=== PATIENT | male | born 1945 | race Hispanic/Latino ===

== ENCOUNTER 2017-11-20 11:53 | Emergency (ER) | payer MEDICARE ==
[~2017-11-20] VITALS: Ht 172.7 cm; Wt 80.7 kg
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
[2017-11-20 15:21] VITALS: BP 164/92
== END 2017-11-20 15:21 | disposition home or self-care (01) ==
LOC: ER 11:53
DX: M54.2 Cervicalgia (principal); S16.1XXA Strain of muscle, fascia and tendon at neck level, initial encounter; V43.52XA Car driver injured in collision with other type car in traffic accident, initial encounter; Y92.488 Other paved roadways as the place of occurrence of the external cause; I10 Essential (primary) hypertension; E11.9 Type 2 diabetes mellitus without complications
CPT/HCPCS: 70450; 71046; 72125; 99283

== ENCOUNTER 2018-07-23 20:51 | Inpatient (IN) | payer MEDICARE ==
[~2018-07-23] VITALS: Ht 172.7 cm; Wt 82.1 kg
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
[2018-07-23 22:25] LABS: BILIRUBIN,URINE NEGATIVE (NEGATIVE); CLARITY,URINE CLEAR (CLEAR); COLOR,URINE YELLOW (YELLOW); KETONES,URINE NEGATIVE (NEGATIVE); LEUKOCYTE ESTERASE ,URINE NEGATIVE (NEGATIVE); NITRITE,URINE NEGATIVE (NEGATIVE); PROTEIN,URINE DIPSTICK 2+ (NEGATIVE); URINE UROBILINOGEN 0.2 mg/dL (0.2 - 1)
[2018-07-23 22:30] LABS: BACTERIA,URINE RARE /HPF; EPITHELIAL CELLS,URINE RARE /LPF; MUCUS,URINE MODERATE (RARE); RBC,URINE 0-5 /HPF (0-5); WBC,URINE (MAN) 0-5 /HPF (0-5)
[2018-07-23 22:48] LABS: BASOPHILS % 0.2 % (0.0-1.0); EOSINOPHILS # (AUTO) 0.2 (0.0-0.4); EOSINOPHILS % 1.4 % (0.0-6.0); LYMPHOCYTES # (AUTO) 2.1 (1.0-3.2); LYMPHOCYTES % 15.8 % (18.0-39.1); MEAN CORPUSCULAR HEMOGLOBIN 29.5 pg (28-32); MEAN CORPUSCULAR HGB CONC 34.1 g/dL (31-35); MEAN CORPUSCULAR VOLUME 86.6 fL (81-99); MONOCYTES # (AUTO) 0.6 (0.2-0.8); MONOCYTES % 4.6 % (4.4-11.3); NEUTROPHILS # (AUTO) 10.2 (2.1-6.9); NEUTROPHILS % 77.5 % (38.7-80.0); PLATELET COUNT 192 x10e3/uL (140-360); RED BLOOD COUNT 5.08 x10e6/uL (4.3-5.7); RED CELL DISTRIBUTION WIDTH 13.5 % (11.7-14.4)
[2018-07-23] MEDS ORDERED: SODIUM CHLORIDE 0.9% 50ML 50 ML ONE (22:48)
[2018-07-23] MEDS ORDERED: IOPAMIDOL 370 MG/ML 200 ML INFUS..BTL INJ ONE (22:48)
[2018-07-23 23:08] LABS: ALBUMIN 4.5 g/dL (3.5-5.0); ALBUMIN/GLOBULIN RATIO 1.3 (0.8-2.0); ANION GAP 15.9 mmol/L (8-16); CALCIUM 9.2 mg/dL (8.4-10.2); CREATININE, SERUM 1.28 mg/dL (0.72-1.25); POTASSIUM 3.9 mmol/L (3.5-5.1)
[2018-07-24] VITALS (7 sets, daily range): BP systolic 135–162; BP diastolic 76–85
--- NOTE | 2018-07-24 00:30 | Diagnostic Imaging Report ---
EXAM: CT ABDOMEN/PELVIS W DATE: 07/23/2018 9:48 PM INDICATION: Abdominal pain, history of prior umbilical surgery COMPARISON: None TECHNIQUE: The abdomen and pelvis were scanned using a multidetector helical scanner. Coronal and sagittal reformations were obtained. CT low dose techniques were utilized, as applicable. IV Contrast: 100 ml Isovue 300/370 FINDINGS: LOWER THORAX: No consolidations LIVER/BILIARY: Hepatic steatosis with multiple fluid attenuation hypodensities, likely benign/cysts. No ductal dilatation. GALLBLADDER: Unremarkable SPLEEN: Unremarkable PANCREAS: Unremarkable ADRENALS: No nodules KIDNEYS: Left kidney is absent. Incidental right renal cysts and too small to characterize hypodensities. Right extrarenal pelvis versus pelviectasis. GI TRACT: Dilated fluid filled small bowel loops with transition point at the anterior mid abdomen (image 49). Nonspecific mild wall thickening and hyperemia near the transition point. Normal appendix. VESSELS: Mild atherosclerotic changes PERITONEUM/RETROPERITONEUM: No free air or fluid LYMPH NODES: No lymphadenopathy REPRODUCTIVE ORGANS/BLADDER: Atrophic or absent left seminal vesicle. Otherwise unremarkable. SOFT TISSUES: Postsurgical changes along the emboli gas, likely related to a prior hernia repair. BONES: Multilevel degenerative changes. Prior fusion L4-S1. Posterior wires are noted. IMPRESSION: Small bowel obstruction with transition point in the central mid abdomen, likely related to adhesive disease from prior surgery. Signed by: Dr Ellyn Hunter MD on 07/24/2018 12:27 AM
[2018-07-24] MEDS ORDERED: SODIUM CHLORIDE 0.9% 1000ML 1,000 ML IV SCH (00:48)
--- NOTE | 2018-07-24 01:45 | NUR ---
REPORT RECEIVED FROM EMERGENCY ROOM NURSE TOÑO.
--- NOTE | 2018-07-24 01:58 | NUR ---
PATIENT CAME FROM EMERGENCY ROOM VIA STRETCHER. ASSESSMENT DONE. PATIENT IS ALERT AND ORIENTED. NO COMPLAINT OF PAIN AT THIS TIME.
--- NOTE | 2018-07-24 06:53 | NUR ---
FAMILY WAS NOTIFIED TO BRING MEDICATION LIST FROM HOME
--- NOTE | 2018-07-24 06:54 | NUR ---
REPORT GIVEN TO ONCOMING NURSE.
--- NOTE | 2018-07-24 07:32 | NUR ---
PATIENT IS IN STABLE CONDITION WITH NO S/S OF RESPIRATORY DISTRESS. PATIENT DENIES ANY PAIN. IV FLUIDS INFUSING. CALL LIGHT IS WITHIN REACH, INSTRUCTED TO CALL FOR ASSISTANCE NEEDED.
[2018-07-24] MEDS ORDERED: AMOXICILLIN250 MG PO (07:50)
[2018-07-24] MEDS ORDERED: CLARITHROMYCIN500 MG PO (07:50)
[2018-07-24] MEDS ORDERED: NEXIUM40 MG PO (07:50)
[2018-07-24] MEDS ORDERED: ZOLPIDEM TARTRATE 10 MG TAB PO PRN (10:00)
[2018-07-24] MEDS ORDERED: HYDRALAZINE HCL 20 MG/ML VIAL IV PRN (10:00)
--- NOTE | 2018-07-24 10:39 | Consultation ---
DATE OF CONSULTATION: July 24, 2018 REASON FOR CONSULTATION: Small-bowel obstruction. HISTORY: The patient is a pleasant 73-year-old male who complains of intermittent abdominal pain for the last 2-3 months associated with ingestion of food mainly. The pain last night got worse, and it was felt mainly in the middle upper abdomen as opposed to the previous several months where the pain was located in the lower midline of the abdomen. The pain was associated with nausea. He cannot pinpoint the type of food that produces the pain, but in general food is what aggravates and produces the pain. The patient stated that after he began passing flatus last night the pain subsided. He denies any pain now. He denies any hematochezia, dysuria, hematuria, or any GI problems in the past. PAST MEDICAL HISTORY: He denies any diabetes, coronary artery disease, hypertension. PAST SURGICAL HISTORY: Significant for umbilical hernia repair 4 years ago and back surgery. SOCIAL HISTORY: The patient does not drink. Does not smoke. FAMILY HISTORY: Noncontributory. REVIEW OF SYSTEMS: What has been stated. MEDICATIONS: See the nurse's list. PHYSICAL EXAMINATION GENERAL: Reveals a 73-year-old male in no acute distress. HEENT: Unremarkable. LUNGS: Clear. HEART: Reveals sinus rhythm. ABDOMEN: Reveals the abdomen is soft without any peritoneal signs. No masses palpable. There is a healed umbilical incision. Examination of the groins with the patient in the supine position reveal no hernia incarceration or masses. ADMISSION LABORATORY: Reveals a white count of 13 with a hematocrit of 44 and normal platelet count. Admission chemistries are normal. His BUN is 1.28, GFR is 55, blood sugar is 239. CT scan as previously stated shows small-bowel obstruction with a "transition zone" in the central midabdomen. ASSESSMENT 1. Small-bowel obstruction which appears to have improved since admission as evidenced by the patient's clinical condition improving and the passage of flatus. 2. Postprandial pain for the last 2-3 months, the etiology of which is not too clear: Will need to be evaluated once his small-bowel obstruction resolves. I recommend observation and serial x-rays and labs. If his condition deteriorates, we may need to put in an NG tube. Would also recommend GI evaluation for the postprandial type of pain. Job#: [id number] BRIAN
--- NOTE | 2018-07-24 10:47 | History and Physical ---
PRIMARY PHYSICIAN: Dr. Jimmie Lane CHIEF COMPLAINT: Abdominal pain. HISTORY OF PRESENT ILLNESS: The patient is a 73-year-old man. He reports a history of intermittent abdominal pain for the past 2 months. He states it is worse after he eats. He saw Dr. Lane who is making arranged for an gastroenterology evaluation as an outpatient. Last night he had more severe pain than usual. He subsequently came to the emergency department. He denied any nausea or vomiting, but did note some diarrhea. Evaluation in the emergency department with a CT showed possible small-bowel obstruction. He was made n.p.o. and given IV fluids and pain medicine. He reports some improvement. PAST SURGICAL HISTORY: Status post umbilical hernia repair. PAST MEDICAL HISTORY 1. Borderline diabetes. 2. Possible hypertension. SOCIAL HISTORY: The patient is not a smoker or a drinker. ALLERGIES: THERE ARE NO KNOWN DRUG ALLERGIES. FAMILY HISTORY: Noncontributory. REVIEW OF SYSTEMS: The patient is afebrile. He has no headache. There is no neck pain. He has no chest pain. He has no dyspnea. He did have abdominal pain, which has improved. He had some diarrhea. There is no leg edema. PHYSICAL EXAMINATION VITALS: The blood pressure is 155/80 with a pulse of 64, and saturation of 95%. HEENT: Shows no facial swelling or erythema. The nasal mucosa is normal. The oropharynx is normal. LYMPHATIC: Shows no submandibular, cervical or supraclavicular adenopathy. CARDIOVASCULAR: Reveals a regular rate and rhythm with a normal S1 and S2. There are no murmurs or rubs. RESPIRATORY: Auscultation of lungs shows clear breath sounds bilaterally. There is no wheezing. ABDOMEN: Soft and Nontender. There is no rebound or guarding. EXTREMITIES: Shows no leg edema or calf tenderness. There is no cyanosis or clubbing. SKIN: Shows no rashes. NEUROLOGIC: Shows no focal abnormalities. LABORATORY DATA: The BUN to creatinine ratio is 19 to 1.28. The white blood cell count is 13.7 and hemoglobin is 15. RADIOGRAPHIC DATA: Abdominal pelvic CT shows possible small-bowel obstruction. IMPRESSION 1. Intermittent abdominal pain. 2. Hypertension. 3. Acute kidney injury. 4. Diabetes. PLAN 1. The patient will be n.p.o. for now with IV fluids. 2. General surgery and gastroenterology consult. 3. Antibiotics. 4. Repeat creatinine and electrolytes in the morning. Job#: [id number] BRIAN
--- NOTE | 2018-07-24 11:59 | Consultation ---
DATE OF CONSULTATION: REFERRING PHYSICIAN: Dr. Michele. REASON FOR CONSULTATION: Abdominal pain. HISTORY OF PRESENT ILLNESS: Mr. Mcneal is a very pleasant 73-year-old gentleman who is here with small bowel obstruction which appears to be related to scar tissue from prior umbilical repair. I am consulted because of more long standing abdominal problems. He reports he has been having lower abdominal pain which is crampy and bilateral. It seems to be worse after eating. He has not had a bowel movement since his 30s at which time it was performed for the indication of rectal bleeding and only hemorrhoids were found. His brother was recently diagnosed with colon cancer requiring resection, and his brother is a year younger than him. Otherwise, he has not had any overt GI bleeding. He recently saw his primary care doctor for his problems and was diagnosed with H. pylori. He was currently taking the Omeclamox regimen, broken down into individual components. He developed more severe pain, came in and was found to have the small bowel obstruction. He is passing some gas and did have small a loose stool prior to admission. PAST SURGICAL HISTORY: Umbilical hernia repair. PAST MEDICAL HISTORY: Borderline diabetes, possible hypertension. MEDICATIONS/ALLERGIES: REVIEWED. PLEASE SEE MAR MEDICATION RECONCILIATION FORM. SOCIAL HISTORY: No alcohol, tobacco, or illicit substances. FAMILY HISTORY: Positive for colon cancer in his brother as mentioned in history of present illness, as well as positive for bowel resection for volvulus in his mother. REVIEW OF SYSTEMS: Twelve system review is positive for that mentioned in history of present illness. Otherwise unremarkable. PHYSICAL EXAMINATION GENERAL: Pleasant, alert, oriented, no acute distress. HEENT: Pupils equal, round, reactive to light. NECK: Supple. LUNGS: Clear. CARDIOVASCULAR: S1, S2. ABDOMEN: Soft. Mildly tender throughout. No rebound, guarding, or mass. Quiet bowel sounds. EXTREMITIES: No clubbing, cyanosis, edema. PSYCH: Calm, cooperative. NEUROLOGIC: Nonfocal. HEME/ONC: No bruising or adenopathy. The electronic health records are reviewed for laboratory and radiologic studies as well as history. ASSESSMENTS 1. Small bowel obstruction. Patient was discussed with Dr. Bob Cavanaugh who will be managing the bowel obstruction from a surgical standpoint. 2. Several months of nonspecific lower abdominal discomfort, worse with p.o. intake. Will need to rule out colonic pathology on a more routine basis when the bowel obstruction is resolved. I have given him my card and he will follow up in clinic for colonoscopy outpatient. 3. Helicobacter pylori: He is not going to be able to finish is Helicobacter pylori therapy here in the hospital. Given the bowel obstruction, he has had a significant interruption in treatment. I would recommend restarting his therapy as an outpatient and he can either have a followup breath test which we could do in clinic or esophagogastroduodenoscopy, pending what his symptoms are like after the bowel obstruction has resolved and when he follows up with me. Thank you very much for asking me to see Mr. Mcneal. Any questions or concerns please do not hesitate to contact me. Job#: [id number] NERI
[2018-07-24] MEDS: SODIUM CHLORIDE 0.45% 1,000 ML IV SCH ×3 (12:50→22:24)
[2018-07-24] MEDS: PIPER-TAZ 3.375 GM 50 ML IV SCH ×2 (12:51→17:06)
[2018-07-24] MEDS ORDERED: ACETAMINOPHEN 325 MG TAB PO PRN (15:45)
[2018-07-24] MEDS ORDERED: ONDANSETRON HCL INJ 2 MG/ML VIAL IV PRN (15:45)
[2018-07-24] MEDS ORDERED: ACETAMINOPHEN 1000 MG/100 ML IV SCH (18:00)
[2018-07-24] MEDS ORDERED: ACETAMINOPHEN 1000 MG/100 ML IV PRN (18:00)
--- NOTE | 2018-07-24 19:22 | NUR ---
REPORT GIVEN TO ONCOMING NURSE. PATIENT IN THE RESTROOM.
[2018-07-25] VITALS (7 sets, daily range): BP systolic 144–192; BP diastolic 78–95
[2018-07-25] MEDS: PIPER-TAZ 3.375 GM 50 ML IV SCH ×4 (00:36→18:10)
[2018-07-25 01:52] LABS: HEMOGLOBIN 13.3 g/dL (14.0-18.0); MEAN CORPUSCULAR HEMOGLOBIN 29.7 pg (28-32); MEAN CORPUSCULAR VOLUME 84.8 fL (81-99); PLATELET COUNT 164 x10e3/uL (140-360); RED BLOOD COUNT 4.48 x10e6/uL (4.3-5.7); RED CELL DISTRIBUTION WIDTH 13.2 % (11.7-14.4)
[2018-07-25 02:04] LABS: ANION GAP 13.6 mmol/L (8-16); BLOOD UREA NITROGEN 11 mg/dL (7-26); BUN/CREATININE RATIO 14 (6-25); CALCIUM 8.5 mg/dL (8.4-10.2); CARBON DIOXIDE 20 mmol/L (22-29); CHLORIDE 106 mmol/L (98-107); CREATININE, SERUM 0.81 mg/dL (0.72-1.25); EST GLOMERULAR FILTRATION RATE > 60 ML/MIN (60-); GLUCOSE 123 mg/dL (74-118); POTASSIUM 3.6 mmol/L (3.5-5.1); SODIUM 136 mmol/L (136-145)
[2018-07-25] MEDS ORDERED: DEXTROSE 50% SYRINGE 50 ML IV PRN (03:30)
--- NOTE | 2018-07-25 06:21 | NUR ---
patient left unit in wheelchair to radiology in stable condition.
[2018-07-25 06:33] LABS: ALANINE AMINOTRANSFERASE 25 IU/L (0-55); ALBUMIN 3.6 g/dL (3.5-5.0); ALBUMIN/GLOBULIN RATIO 1.3 (0.8-2.0); ALKALINE PHOSPHATASE 47 IU/L (40-150); LIPASE 35 U/L (8-78)
--- NOTE | 2018-07-25 06:38 | NUR ---
patient is back in room from radiology, remains instable condition.
--- NOTE | 2018-07-25 06:46 | Diagnostic Imaging Report ---
Exam: Abdominal x-ray Indication: Small bowel obstruction Comparison: CT the abdomen and pelvis July 23, 2018 Findings: Interval decrease in size of the dilated loops of small bowel. Spinal wires project over the lower lumbar spine. No evidence of free peritoneal air. Impression: Findings consistent with resolving small bowel obstruction. Signed by: Dr. Sylvie Mota M.D. on 07/25/2018 6:43 AM
[2018-07-25] MEDS ORDERED: PANTOPRAZOLE 40 MG 10ML VIAL IV SCH (07:30)
[2018-07-25] MEDS: INSULIN LISPRO 100 UNIT/1 ML 3ML VIAL SQ SCH ×4 (07:30→21:48)
--- NOTE | 2018-07-25 07:45 | NUR ---
PATIENT IS AWAKE, ALERT, AND IN STABLE CONDITION WITH NO S/S OF RESPIRATORY DISTRESS. NO PAIN VOICED.IV FLUIDS INFUSING. PATIENT REMAIN NPO AT THIS TIME. CALL LIGHT IS WITHIN REACH, INSTRUCTED TO CALL FOR ASSISTANCE NEEDED.
[2018-07-25] MEDS: SODIUM CHLORIDE 0.45% 1,000 ML IV SCH ×2 (08:41→18:10)
[2018-07-25] MEDS ORDERED: BISACODYL 10 MG SUPP PR ONE (12:45)
--- NOTE | 2018-07-25 12:55 | Progress Note ---
DATE: July 25, 2018 SUBJECTIVE: Patient has been NPO throughout the night. He has no further abdominal pain. He is a having bowel sounds. He has some flatulence. PHYSICAL EXAMINATION VITAL SIGNS: The patient is afebrile. HEENT: Shows no facial swelling or erythema. CARDIAC: Reveals regular rate and rhythm with normal S1 and S2. There are no murmurs or rubs. LUNGS: Auscultation of lungs reveals clear breath sounds bilaterally. ABDOMEN: Soft, nontender. There is no rebound or guarding. LABORATORY DATA: Electrolytes, BUN and creatinine are within normal limits. Liver function tests are within normal limits. CBC is normal. IMPRESSION 1. Partial small bowel obstruction. 2. Hypertension. 3. Acute kidney injury. 4. Diabetes. PLAN 1. Advance feeding as tolerated. 2. If patient tolerates feedings well, consider discharge home with outpatient GI evaluation. 3. Continue current diabetic regimen. 4. Case discussed with Dr. Cavanaugh and with patient. Job#: [id number] GRANT
--- NOTE | 2018-07-25 19:17 | NUR ---
PATIENT IS IN STABLE CONDITION WITH NO S/S OF RESPIRATORY DISTRESS. NO PAIN VOICED. IV FLUIDS INFUSING. CALL LIGHT IS WITHIN REACH, INSTRUCTED TO CALL FOR ASSISTANCE NEEDED. REPORT GIVEN TO ONCOMING NURSE.
--- NOTE | 2018-07-25 21:11 | NUR ---
spoke with ETHAN Lau of Dr. Heck regarding elevated BP. orders received, and implemented.
[2018-07-25] MEDS ORDERED: METOPROLOL TARTRATE INJ 1 MG/ML VIAL IV ONE (21:15)
[2018-07-26] VITALS: BP 123/63
[2018-07-26] MEDS: PIPER-TAZ 3.375 GM 50 ML IV SCH ×2 (00:55→06:29)
[2018-07-26 03:11] LABS: BASOPHILS % 0.3 % (0.0-1.0); EOSINOPHILS # (AUTO) 0.3 (0.0-0.4); EOSINOPHILS % 3.7 % (0.0-6.0); HEMATOCRIT 41.9 % (38.2-49.6); HEMOGLOBIN 14.6 g/dL (14.0-18.0); LYMPHOCYTES # (AUTO) 2.2 (1.0-3.2); LYMPHOCYTES % 30.4 % (18.0-39.1); MEAN CORPUSCULAR HEMOGLOBIN 29.4 pg (28-32); MEAN CORPUSCULAR HGB CONC 34.8 g/dL (31-35); MEAN CORPUSCULAR VOLUME 84.3 fL (81-99); MONOCYTES # (AUTO) 0.5 (0.2-0.8); MONOCYTES % 6.3 % (4.4-11.3); NEUTROPHILS # (AUTO) 4.2 (2.1-6.9); PLATELET COUNT 200 x10e3/uL (140-360); RED BLOOD COUNT 4.97 x10e6/uL (4.3-5.7); RED CELL DISTRIBUTION WIDTH 13.3 % (11.7-14.4)
[2018-07-26 03:27] LABS: ANION GAP 12.6 mmol/L (8-16); BLOOD UREA NITROGEN 10 mg/dL (7-26); BUN/CREATININE RATIO 11 (6-25); CALCIUM 9.6 mg/dL (8.4-10.2); CARBON DIOXIDE 20 mmol/L (22-29); CHLORIDE 106 mmol/L (98-107); CREATININE, SERUM 0.93 mg/dL (0.72-1.25); EST GLOMERULAR FILTRATION RATE > 60 ML/MIN (60-); GLUCOSE 150 mg/dL (74-118); MAGNESIUM 2.3 MG/DL (1.3-2.1); POTASSIUM 3.6 mmol/L (3.5-5.1); SODIUM 135 mmol/L (136-145)
[2018-07-26 04:00] VITALS: BP 132/78
--- NOTE | 2018-07-26 06:54 | Diagnostic Imaging Report ---
Exam: Abdominal x-ray Indication: Small bowel obstruction Comparison: Abdominal x-ray July 25, [address] of the abdomen and pelvis July 23, 2018 Findings: Resolution of dilated loops of small bowel. Air is seen throughout the colon. Stable appearance of the soft tissues and bones. Impression: Resolution of small bowel obstruction. Signed by: Dr. Sylvie Mota M.D. on 07/26/2018 6:51 AM
[2018-07-26] MEDS ORDERED: PANTOPRAZOLE SOD 40 MG TABEC PO SCH (08:15)
[2018-07-26 08:38] VITALS: BP 157/87
[2018-07-26] MEDS ORDERED: LISINOPRIL 2.5 MG TAB PO SCH (09:00)
[2018-07-26 09:05] VITALS: BP 157/87
[2018-07-26] MEDS: INSULIN LISPRO 100 UNIT/1 ML 3ML VIAL SQ SCH ×3 (09:05→17:20)
--- NOTE | 2018-07-26 11:46 | NUR ---
Spoke with Nazia Velásquez at this time. Orders to D/C IV Zosyn. No new IV access obtained at this time.
[2018-07-26 11:49] VITALS: BP 156/98
[2018-07-26 16:05] VITALS: BP 157/81
--- NOTE | 2018-07-26 19:45 | NUR ---
RECEIVED PATIENT SITTING ON A CHAIR. ALERT AND ORIENTED.
--- NOTE | 2018-07-26 19:59 | NUR ---
DISCHARGE PATIENT IN GOOD CONDITION. ACCOMPANIED WALKING OUT OF THE HOSPITAL FOR TRANSPORTATION WITH A PRIVATE CAR WITH HIS .
--- NOTE | 2018-07-27 09:10 | Discharge Summary ---
ADMISSION DIAGNOSES: 1. Intermittent abdominal pain. 2. Hypertension. 3. Acute kidney injury. 4. Diabetes. 5. Helicobacter pylori. 6. Small-bowel obstruction. DISCHARGE DIAGNOSES: 1. Intermittent abdominal pain. 2. Hypertension. 3. Acute kidney injury. 4. Diabetes. 5. Helicobacter pylori. 6. Small-bowel obstruction. 7. Resolution of small-bowel obstruction. 8. Hyponatremia. 9. Hypermagnesemia. 10. Ruled out bacteremia. 11. Ruled out urinary tract infection. HISTORY: Patient has a history of borderline diabetes, hypertension. HOSPITAL COURSE: [id number]-old male reports a history of intermittent abdominal pain for the last 2 months. He states it is worse after he eats. He saw Dr. Lane who is making arrangement for GI evaluation outpatient. Last night, he had more severe pain than usual. He subsequently came to the ER. He denied nausea and vomiting, but did note some diarrhea. In the ER, patient had a CT of the abdomen that showed small-bowel obstruction with transition point in the central mid abdomen, likely related to adhesive disease from prior surgery. Patient was started on IV fluids and made n.p.o. Overnight, the patient had a bowel movement. A repeat KUB was done that showed findings consistent with resolving small-bowel obstruction. Diet was advanced to full liquid and patient tolerated well. Repeat KUB on July 26 shows resolution of small-bowel obstruction. Patient tolerating regular diet, having bowel movements, and ready to discharge. Per surgery, patient can be discharged home. He will resume Nexium as taken at home. He will follow up with GI for the H. pylori treatment. Will need to be restarted outpatient per GI recommendation. He will resume soft diet for 2 more days. Follow up with primary care as needed. Patient was discharged home per surgery recommendation without a discharge order from the attending. The attending was not made aware of discharge until the next morning when she came to see the patient. Vital signs stable. Patient afebrile. Dictated by Nazia Velásquez NP MARISA CORMIER MD Job#: [id number]
== END 2018-07-26 20:00 | disposition home or self-care (01) | DRG 389 ==
LOC: ER 20:51 → ERHOLD 07-24 00:58 → MED/SURG 07-24 01:58 → OBSVTOIN 07-24 10:21
PROVIDERS: ADMIT Internal Medicine; ATTEND Internal Medicine
DX: K56.600 Partial intestinal obstruction, unspecified as to cause (principal); N17.9 Acute kidney failure, unspecified; E87.1 Hypo-osmolality and hyponatremia; B96.81 Helicobacter pylori [H. pylori] as the cause of diseases classified elsewhere; E11.9 Type 2 diabetes mellitus without complications; E83.41 Hypermagnesemia; I10 Essential (primary) hypertension
CPT/HCPCS: 36415; 74019; 74177; 80048; 80053; 81001; 82948; 83036; 83690; 83735; 85007; 85025; 85027; 87040; 99284; J0360; J2543; J7030; Q9967

== ENCOUNTER → 2018-10-06 | Day surgery (SDC) | payer MEDICARE ==
[2018-10-03 16:47] LABS: BASOPHILS % 0.2 % (0.0-1.0); EOSINOPHILS # (AUTO) 0.1 (0.0-0.4); EOSINOPHILS % 2.9 % (0.0-6.0); HEMATOCRIT 39.8 % (38.2-49.6); HEMOGLOBIN 13.7 g/dL (14.0-18.0); LYMPHOCYTES # (AUTO) 1.9 (1.0-3.2); LYMPHOCYTES % 39.8 % (18.0-39.1); MEAN CORPUSCULAR HEMOGLOBIN 29.1 pg (28-32); MEAN CORPUSCULAR HGB CONC 34.4 g/dL (31-35); MEAN CORPUSCULAR VOLUME 84.7 fL (81-99); MONOCYTES # (AUTO) 0.3 (0.2-0.8); MONOCYTES % 6.8 % (4.4-11.3); NEUTROPHILS # (AUTO) 2.4 (2.1-6.9); NEUTROPHILS % 49.9 % (38.7-80.0); PLATELET COUNT 195 x10e3/uL (140-360); RED CELL DISTRIBUTION WIDTH 13.5 % (11.7-14.4)
[~2018-10-06] MED LIST: AMOXICILLIN250 MG PO; CLARITHROMYCIN500 MG PO; FENTANYL CITRATE/PF 100MCG/2 ML INJ ONE; MIDAZOLAM HCL 2 MG/2 ML VIAL ONE; NEXIUM40 MG PO; PROPOFOL IV EMULSION 10 MG/ML 20 ML VIAL ONE
[2018-10-06 19:12] VITALS: BP 118/60
--- NOTE | 2018-10-07 04:48 | Operative Report ---
DATE OF PROCEDURE: 10/06/2018 SURGEON: Bryan Bradford MD PROCEDURE: Esophagogastroduodenoscopy with biopsies and colonoscopy with polypectomy. INDICATION FOR EGD: Acid reflux. INDICATIONS FOR COLONOSCOPY: Colorectal cancer screening. MEDICATION: The patient was done under MAC, please see anesthesiologist's note. PROCEDURE IN DETAIL: With the patient in left lateral decubitus position, flexible fiberoptic Olympus gastroscope was introduced into the esophagus under direct visualization without any difficulty. There were some patchy erythema noted in distal esophagus. The scope was then advanced with ease into the stomach. Mucosa overlying the antrum and the body revealed some patchy erythema, mild to moderate edema, and biopsies were obtained and sent to stain for H. pylori. The pylorus was intubated with ease and the scope was advanced all the way to the second portion of the duodenum. A minute submucosal nodule was biopsied from the proximal second portion. Biopsies were obtained from the second portion as well as the duodenal bulb to rule out sprue. The scope was then withdrawn back into the stomach and retroflexed and at approximately 4 mm, a submucosal nodule was noted in the fundus that was biopsied. The scope was then straightened out and it was subsequently withdrawn. The patient tolerated the procedure well. IMPRESSION: 1. Distal esophagitis. 2. Gastritis, biopsied. Biopsies sent to stain for H. pylori. 3. Submucosal nodule fundus, biopsied. 4. Rule out sprue. 5. Submucosal nodule, proximal second portion, biopsied. PLAN: Follow up histology. Increase Nexium to 40 mg one p.o. a.c. b.i.d. The patient was then turned around. After adequate lubrication of the anal canal, a flexible fiberoptic Olympus colonoscope was inserted into the rectum with ease and advanced all the way to the cecum. It was then withdrawn slowly. Mucosa overlying the cecum, ascending colon, transverse colon, descending colon appeared to be within normal limits. An approximately 6 mm polyp in proximal sigmoid colon was removed per snare electrocautery. The mucosa overlying the rest of the sigmoid and the rectum appeared to be within normal limits. The scope was then retroflexed into the distal rectum and small internal hemorrhoids were noted, none of which was actively bleeding. The scope was then straightened out and it was subsequently withdrawn. The patient tolerated the procedure well. IMPRESSION: 1. Sigmoid colon polyp approximately 6 mm sessile, removed per snare electrocautery and polypectomy site was hemoclipped x2. 2. Internal hemorrhoids, none actively bleeding. PLAN: Follow up histology. Initiate high-fiber, low-fat diet. Initiate high-fiber supplement. The patient might benefit from a followup colonoscopy in 5 years. Bryan Bradford MD [facility] [place] /[id number] cc: Jimmie Lane DO
== END | disposition home or self-care (01) ==
LOC: OR 15:05
PROVIDERS: ATTEND Internal Medicine Gastroenterology
DX: Z12.11 Encounter for screening for malignant neoplasm of colon (principal); K63.5 Polyp of colon; K29.50 Unspecified chronic gastritis without bleeding; K21.9 Gastro-esophageal reflux disease without esophagitis; K20.9 Esophagitis, unspecified; K31.89 Other diseases of stomach and duodenum; K64.8 Other hemorrhoids; R03.0 Elevated blood-pressure reading, without diagnosis of hypertension; Z01.810 Encounter for preprocedural cardiovascular examination; Z01.812 Encounter for preprocedural laboratory examination; Z68.28 Body mass index [BMI] 28.0-28.9, adult; Z87.891 Personal history of nicotine dependence
CPT/HCPCS: 36415; 43239; 45385; 85025; 93005; J2250; J2704

== ENCOUNTER → 2019-10-15 | Outpatient (CLI) | payer MEDICARE ==
[~2019-10-15] MED LIST changes: -FENTANYL CITRATE/PF 100MCG/2 ML INJ ONE; -MIDAZOLAM HCL 2 MG/2 ML VIAL ONE; -PROPOFOL IV EMULSION 10 MG/ML 20 ML VIAL ONE
--- NOTE | 2019-10-15 11:29 | Diagnostic Imaging Report ---
EXAM: US ABDOMEN COMPLETE DATE: 10/15/2019 9:13 AM INDICATION: Abdominal pain COMPARISON: CT abdomen and pelvis of 07/23/2018 TECHNIQUE: Transverse and longitudinal hagen scale and color doppler sonographic images of the upper abdomen were obtained. FINDINGS: LIVER 17.9 cm in the right midclavicular line. Increased echogenicity of the liver with normal contour, no masses. 1.5 cm right hepatic cyst. SPLEEN 12.2 cm in maximum diameter. Normal echogenicity, no masses. GALLBLADDER No gallbladder wall thickening, distension, stone, or pericholecystic fluid. Negative reported sonographic Garay's sign. The gallbladder wall measures 3mm BILE DUCTS No intra nor extra-hepatic biliary dilation. Common bile duct measures 4mm PANCREAS: Visualized portions are normal. RIGHT KIDNEY: 16.2 cm Echogenicity: Normal Collecting System: No hydronephrosis Stones: None Cyst/Mass: Mid pole 2.5 x 2.3 x 2.1 cm anechoic simple cyst. LEFT KIDNEY: Absent VESSELS: Aorta: Visualized portions are within normal size limits Inferior Vena Cava: Visualized portions are normal Main Portal Vein: 1.3 cm, normal size with hepatopetal flow. FREE FLUID: None IMPRESSION: Hepatic steatosis and borderline hepatomegaly. Signed by: Angus Alberto MD on 10/15/2019 11:27 AM
--- NOTE | 2019-10-15 19:26 | Diagnostic Imaging Report ---
Hepatobiliary Scan with Gallbladder Ejection Fraction Clinical information: Upper abdominal pain Technique: Following intravenous administration of 5.4 millicuries of Tc-99m mebrofenin, dynamic images of the abdomen in the anterior projection were obtained through 20 minutes. Sincalide (CCK analog) 1.9 micrograms was administered intravenously over 30 minutes with additional imaging for determination of gallbladder ejection fraction. Discussion: Perfusion of the liver is normal. Extraction of tracer by the liver parenchyma is mildly prolonged. Tracer appears promptly within the biliary tract. The gallbladder begins to fill at 15 minutes post injection of tracer and fills adequately. Tracer is seen in the small bowel during the sincalide infusion. There is no contractile response by the gallbladder to the pharmacologic dose of sincalide. No emptying of the gallbladder occurs during the 30 minute infusion. Impression: 1. Filling of the gallbladder excludes acute cystic duct obstruction/acute cholecystitis. 2. The gallbladder ejection fraction is undefined as there is no emptying of the gallbladder during the infusion of sincalide. This absence of a contractile response to sincalide supports the clinical diagnosis of chronic cholecystitis/gallbladder dyskinesia. Signed by: Dr. Monae Leblanc M.D. on 10/15/2019 7:23 PM
== END ==
LOC: US 09:03
PROVIDERS: ATTEND Internal Medicine Gastroenterology
DX: R10.10 Upper abdominal pain, unspecified (principal)
CPT/HCPCS: 76700; 78227; A9537

== ENCOUNTER → 2020-01-14 | Outpatient (CLI) | payer MEDICARE, OTHER ==
[2020-01-14 08:22] LABS: BASOPHILS % 0.4 % (0.0-1.0); EOSINOPHILS # (AUTO) 0.2 (0.0-0.4); EOSINOPHILS % 3.7 % (0.0-6.0); HEMATOCRIT 41.2 % (38.2-49.6); HEMOGLOBIN 13.9 g/dL (14.0-18.0); LYMPHOCYTES # (AUTO) 2.3 (1.0-3.2); LYMPHOCYTES % 42.2 % (18.0-39.1); MEAN CORPUSCULAR HEMOGLOBIN 28.4 pg (28-32); MEAN CORPUSCULAR HGB CONC 33.7 g/dL (31-35); MEAN CORPUSCULAR VOLUME 84.3 fL (81-99); MONOCYTES # (AUTO) 0.4 (0.2-0.8); MONOCYTES % 7.1 % (4.4-11.3); NEUTROPHILS # (AUTO) 2.5 (2.1-6.9); NEUTROPHILS % 46.2 % (38.7-80.0); PLATELET COUNT 180 x10e3/uL (140-360); RED BLOOD COUNT 4.89 x10e6/uL (4.3-5.7); RED CELL DISTRIBUTION WIDTH 13.4 % (11.7-14.4)
[2020-01-14 08:40] LABS: ALANINE AMINOTRANSFERASE 22 IU/L (0-55); ALBUMIN 3.8 g/dL (3.5-5.0); ALBUMIN/GLOBULIN RATIO 1.3 (0.8-2.0); ALKALINE PHOSPHATASE 61 IU/L (40-150); ANION GAP 15.2 mmol/L (8-16); BLOOD UREA NITROGEN 16 mg/dL (7-26); BUN/CREATININE RATIO 16 (6-25); CALCIUM 8.9 mg/dL (8.4-10.2); CARBON DIOXIDE 22 mmol/L (22-29); CHLORIDE 107 mmol/L (98-107); CREATININE, SERUM 1.02 mg/dL (0.72-1.25); EST GLOMERULAR FILTRATION RATE > 60 ML/MIN (60-); GLUCOSE 215 mg/dL (74-118); POTASSIUM 4.2 mmol/L (3.5-5.1); SODIUM 140 mmol/L (136-145)
--- NOTE | 2020-01-14 13:28 | Diagnostic Imaging Report ---
EXAM: SMALL BOWEL SERIES DATE: 01/14/2020 8:50 AM INDICATION: Chronic acalculus cholecystitis, abdominal pain COMPARISON: Abdominal radiograph from 07/26/2018 Fluoroscopy Time: 0.3 minus min. Reference Air Kerma (Ka, r): 5.49 mGy. FINDINGS: Scan images demonstrate spinal wires projecting over the lower lumbar spine and sacrum. Enteric contrast material was provided orally without complication. Small bowel transit time is within normal limits with contrast material reaching the colon within 2 hours. The visualized gastric folds are unremarkable. Small bowel folds are unremarkable without evidence of fixed filling defect, intrinsic/extrinsic compression, extravasation, or other mucosal abnormality. Spot images were performed of the terminal ileum which demonstrate no significant abnormalities. IMPRESSION: Unremarkable small bowel follow-through examination. Signed by: Dr. Geovany Everett MD on 01/14/2020 1:25 PM
== END ==
LOC: DX 07:58
PROVIDERS: ATTEND Surgery
DX: R10.9 Unspecified abdominal pain (principal); K81.1 Chronic cholecystitis; Z11.59 Encounter for screening for other viral diseases
CPT/HCPCS: 36415; 74250; 80053; 85025; 87635

== ENCOUNTER 2020-01-25 05:35 | Inpatient (IN) | payer MEDICARE, OTHER ==
--- NOTE | 2020-01-22 13:52 | Diagnostic Imaging Report ---
EXAMINATION: CHEST 2 VIEWS INDICATION: Pre-operative COMPARISON: None FINDINGS: LINES/TUBES:None LUNGS:The lungs are well-inflated. No focal consolidation or pulmonary edema. PLEURA:No pleural effusion or pneumothorax. MEDIASTINUM:The cardiomediastinal silhouette appears normal in size and shape. BONES/SOFT TISSUES:No acute osseous injury. ABDOMEN:No free air under the diaphragm. IMPRESSION: No focal pneumonia or pulmonary edema. Signed by: Angus Alberto MD on 01/22/2020 1:49 PM
[~2020-01-25] VITALS: Ht 172.7 cm; Wt 82.1 kg
[2020-01-25] MEDS ORDERED: BUPIVACAINE 0.25%/EPI 30ML SDV INJ ONE ×2 (07:43→08:19)
[2020-01-25] MEDS ORDERED: DEXAMETHASONE SOD PHOS 10 MG/1 ML VIAL ONE (08:05)
[2020-01-25] MEDS ORDERED: HYDROMORPHONE 1MG/1ML INJ ONE (10:11)
[2020-01-25] MEDS ORDERED: PROPOFOL IV EMULSION 10 MG/ML 20 ML VIAL ONE (11:40)
[2020-01-25] MEDS ORDERED: CEFAZOLIN SOD 1 GM VIAL ONE (11:40)
[2020-01-25] MEDS ORDERED: GLYCOPYRROLATE INJ 0.2 MG/ML VIAL ONE (11:40)
[2020-01-25] MEDS ORDERED: PHENYLEPHRINE HCL 1% 10 MG/ML VIAL ONE (11:40)
[2020-01-25] MEDS ORDERED: ACETAMINOPHEN 1000 MG/100 ML IV ONE (11:40)
[2020-01-25] MEDS ORDERED: LABETALOL HCL 5 MG/ML 20ML VIAL ONE (11:40)
[2020-01-25] MEDS ORDERED: ROCURONIUM BROMIDE 10 MG/ML 5ML VIAL IV ONE (11:40)
[2020-01-25] MEDS ORDERED: NEOSTIGMINE 1 MG/ML 10ML VIAL ONE (11:40)
[2020-01-25] MEDS ORDERED: CEFOXITIN SOD 1 GM VIAL ONE (11:40)
[2020-01-25] MEDS ORDERED: EPHEDRINE SULFATE INJ 50 MG/ML VIAL ONE (11:40)
[2020-01-25] MEDS ORDERED: SEVOFLURANE INHAL SOLN 250 ML PEN BTL ONE (11:40)
[2020-01-25] MEDS ORDERED: LIDOCAINE HCL 2% LOCAL INJ 5 ML SDV VIAL INJ ONE (11:40)
[2020-01-25] MEDS ORDERED: HYDRALAZINE HCL 20 MG/ML VIAL ONE (11:40)
[2020-01-25] MEDS ORDERED: ONDANSETRON HCL INJ 2MG/ML 2ML 2 MG/ML VIAL ONE (11:40)
[2020-01-25] MEDS ORDERED: NALOXONE HCL INJ 0.4 MG/ML AMP IV PRN (13:30)
[2020-01-25] MEDS ORDERED: FENTANYL CITRATE/PF 100MCG/2 ML INJ ONE ×2 (13:35→15:05)
[2020-01-25] MEDS: HYDROMORPHONE 0.2MG/ML-SOD CHL 30ML PCA SYRINGE IV PRN ×2 (14:10→18:14)
[2020-01-25] MEDS ORDERED: POTASSIUM CHLORIDE 10MEQ/100ML 100 ML IV ONE (14:30)
[2020-01-25] MEDS: SODIUM CHLORIDE 0.9% 1000ML 1,000 ML IV SCH ×2 (14:42→23:05)
[2020-01-25] MEDS: PANTOPRAZOLE 40 MG 10ML VIAL IV SCH (14:53)
[2020-01-25 15:23] VITALS: BP 155/59
[2020-01-25 16:36] VITALS: BP 138/75
[2020-01-25 16:43] VITALS: BP 138/75
[2020-01-25 16:58] VITALS: BP 138/75
[2020-01-25] MEDS: INSULIN REGULAR, HUMAN 100 UNIT/1 ML 3ML VIAL SQ SCH (18:00)
[2020-01-25] MEDS ORDERED: CEFOXITIN 1GM/ D5W 50ML 50 ML IV SCH (18:00)
--- NOTE | 2020-01-25 18:01 | Operative Report ---
DATE OF PROCEDURE: 01/25/2020 SURGEON: Bob Cavanaugh MD PREOPERATIVE DIAGNOSES: Biliary dyskinesia, chronic acalculous cholecystitis and abdominal pain. POSTOPERATIVE DIAGNOSES: Chronic acalculous cholecystitis, chronic small bowel obstruction. PROCEDURES PERFORMED: Laparoscopic cholecystectomy converted to exploratory laparotomy, small bowel resection x2. CORONER'S JUROR: YORDY John. ESTIMATED BLOOD LOSS: About 300 mL. DRAINS: None. COMPLICATIONS: None. INDICATION AND FINDINGS: The patient is a pleasant 74-year-old male, who had been referred to the office with diagnosis of chronic acalculous cholecystitis that was done during a GI workup for abdominal pain. An ultrasound revealed no stones, but a HIDA scan revealed zero ejection fraction. The patient's liver chemistries were normal. He did have a history of crampy periumbilical pain and fatty food intolerance. The patient had a small bowel obstruction in 2018 that had resolved with medical therapy. There was no other abnormality. He had tonsillectomy with repair of umbilical hernia with mesh. The patient preoperatively underwent small bowel series because of the crampy pain and a history of previous small-bowel obstruction and I was concerned about some type of chronic small-bowel obstruction or any other type of small-bowel abnormality, however, the small bowel procedures preoperatively were normal. The patient was taken into the operating room where laparoscopy revealed grossly abnormal small bowel located distally with some thickening and dilatation of the bowel about 18 inches proximal to the ileocecal valve extended proximally for maybe 2 to 3 feet, the rest of the small bowel was slightly dilated, but did not find any more proximal area of small bowel abnormality. Because of the possibility of inflammatory bowel disease after I performed a cholecystectomy, I ran the small bowel retrogradely and as I was doing that proximally there was a perforation in the mesenteric side of the small bowel. This was located about 8 inches from the ligament of Treitz. At this point, it was decided to go ahead and proceed with the exploratory laparotomy and resection of this grossly abnormal matted set of small bowel attached to itself with abnormal looking serosa. There were several small nodular implants in the serosa and in the ligament of Treitz and in the hepatorenal ligament and those were biopsied. Final path report is pending on all of this. The patient's was informed intraoperatively of the perforation and the fact that we would have to open the patient and resect the small bowel that was also giving him abdominal pain and most likely it was also the source of his recurrent crampy abdominal pain since at least 2018. The small bowel was then resected and by about an inch and a half in the area of the perforation and then the entire block of small bowel that was grossly abnormal matted to each other about 16 inches proximal to the ileocecal valve and was also dilated with thickened wall and was also resected separately to obtain two specimens from the small bowel. DESCRIPTION OF PROCEDURE: With the patient lying on the operative table in the supine position after administration of general anesthesia, he was prepped and draped for laparoscopic cholecystectomy. The procedure was begun by establishing the pneumoperitoneum in the right upper quadrant because of the previous tonsillectomy and mesh repair of umbilical hernia. When I introduced the small 5 mm scope in the right midclavicular line after the saline drop test was performed we saw that the abdominal wall was free of any adhesions, immediately came into view grossly abnormal matted loops of bowel almost as if they have been plicated to each other and at this point I decided to go ahead and proceed with a cholecystectomy and then after the completion of the cholecystectomy, I was going to go back and run the small bowel. We went ahead and then completed placement of the port. The 10/11 trocar port was placed superior to the umbilicus in an area where I felt it was free of any mesh, however, there was some mesh placed in the location. At any rate, I placed also a 10 mm trocar in the subxiphoid region and finally a right anterior axillary trocar was placed. Then, we began the dissection on the gallbladder with retraction of the fundus and the neck of the gallbladder superiorly and laterally. There were some inflammatory changes in the area of the hepatoduodenal ligament. This was also a noted normal gallbladder likely chronically inflamed consistent with his history of fatty food intolerance. Retrospectively, the pain most likely was due to the small bowel obstruction. We went ahead and then began the dissection on the hepatorenal ligament and then we began the dissection on the neck of the gallbladder high until we exposed the cystic duct. We clipped distally twice 3 times and then transected, the cystic artery was identified and transected also between titanium clips. We then took the gallbladder down using electrocautery dissection and removed it through the umbilical port. There were some small implants in the area of the cystic duct hepatoduodenal ligament and the falciform ligament and these subcentimeter 2 mm implants were biopsied with the Pacman forceps, oozing was cauterized. At this point, having terminated the cholecystectomy then I diverted my attention to the small bowel, identified the cecum with a normal appearing appendix. The cecum and also was grossly normal. It was not involved by this process that was affecting the small bowel about 18 inches proximal to it and extended cephalad about maybe 2 or 3 feet. I continued running the small bowel until we got to a point which was fairly proximal and at that point as I continued to run the small bowel there was a perforation of the small bowel, which then I found out during the laparotomy was about 8 inches from the ligament of Treitz. After I saw the bowel coming out of the proximal small bowel, then I decided to convert the case to an exploratory laparotomy and resect the grossly abnormal small bowel since we had no diagnosis and the patient was fairly asymptomatic with crampy abdominal pain. I went ahead and then transected the perforation and isolated it from the field. Using the HARLEY #75 stapler I transected the small bowel distal to the ligament of Treitz proximally and distally with HARLEY #75 stapler and then resected the small segment. Then I paid attention to the small bowel, transected the small bowel preserving the ileocecal valve leaving about 16 or 18 inches of the distal small bowel and then I continued the dissection proximally until all of that matted loop of bowel center plicated and grossly abnormal was included at the point of resection, about 2 feet of it were removed and then I transected the small bowel proximally. After I did that, I went ahead and then copiously irrigated the abdomen. I performed a nijk-ab-cydy functional end-to-end anastomosis with distal and proximal jejunal loop using the HARLEY stapler and then we closed the rent of the small bowel ends with TA-60 stapler. The staple line was reinforced with 3-0 silk and the rent in the mesentery there was closed using a running 3-0 Vicryl. Attention was then placed to the anastomosis of the distal small bowel, which was anastomosed using the same technique [id number] functional end-to-end. The rent was then closed using 2-0 Vicryl and also the staple line was reinforced using 3-0 silk. We then copiously irrigated the abdomen again several times until the effluent fluid was clear. We went ahead and then performed sponge and instrument counts twice, they were all correct. Then, we closed the wound using a running 0 Vicryl for the peritoneum, a running 0 PDS for the fascia where the mesh had been placed and then we reinforced the closure with 0 Ethibond suture. The fascia was then infiltrated with 0.25% Marcaine with epinephrine as well as the incision as well as the laparoscopy port sites and then we closed the midline incision with a combination of nery and silk. The port sites were closed with nery except for the subxiphoid port that was closed using 2-0 Vicryl and the skin was then closed using nery. The patient tolerated the procedure well, was taken to recovery room in stable condition. The patient's was informed of the intraoperative findings and the fact that he had a laparotomy to deal with the small-bowel abnormality and perforation of the proximal jejunum. The patient tolerated the procedure well and was then taken to recovery room in stable condition. MD DEMETRIUS Granados/[place] /[id number]
[2020-01-25] MEDS: CEFOXITIN SOD 1 GM in SODIUM CHLORIDE 0.9% 50ML 50 ML IV SCH ×2 (18:20→23:50)
[2020-01-25 20:00] VITALS: BP 157/97
--- NOTE | 2020-01-25 20:00 | NUR ---
Received change of shift report from AM nurse. Walking rounds completed.
[2020-01-26] VITALS (7 sets, daily range): BP systolic 127–163; BP diastolic 70–92
--- NOTE | 2020-01-26 | NUR ---
Patient repositioned in bed for comfort. Dress to abdomin dry and intact. Abd binder on. Patient using CRAFT WORKER as needed. Continue monitor
[2020-01-26] MEDS: SODIUM CHLORIDE 0.9% 1000ML 1,000 ML IV SCH ×3 (00:05→17:13)
--- NOTE | 2020-01-26 05:45 | NUR ---
Patient resting quitly at this time. Continue monitor.
[2020-01-26] MEDS: CEFOXITIN SOD 1 GM in SODIUM CHLORIDE 0.9% 50ML 50 ML IV SCH ×3 (06:00→17:14)
[2020-01-26] MEDS: INSULIN REGULAR, HUMAN 100 UNIT/1 ML 3ML VIAL SQ SCH ×4 (06:00→18:48)
[2020-01-26] MEDS: HYDROMORPHONE 0.2MG/ML-SOD CHL 30ML PCA SYRINGE IV PRN ×2 (06:16→21:45)
[2020-01-26 09:21] LABS: BASOPHILS % 0.1 % (0.0-1.0); HEMATOCRIT 41.1 % (38.2-49.6); HEMOGLOBIN 13.7 g/dL (14.0-18.0); LYMPHOCYTES # (AUTO) 2.2 (1.0-3.2); LYMPHOCYTES % 14.8 % (18.0-39.1); MEAN CORPUSCULAR HEMOGLOBIN 28.8 pg (28-32); MEAN CORPUSCULAR HGB CONC 33.3 g/dL (31-35); MEAN CORPUSCULAR VOLUME 86.3 fL (81-99); MONOCYTES # (AUTO) 0.9 (0.2-0.8); MONOCYTES % 6.2 % (4.4-11.3); NEUTROPHILS # (AUTO) 11.8 (2.1-6.9); NEUTROPHILS % 78.4 % (38.7-80.0); PLATELET COUNT 250 x10e3/uL (140-360); RED BLOOD COUNT 4.76 x10e6/uL (4.3-5.7); RED CELL DISTRIBUTION WIDTH 13.6 % (11.7-14.4)
[2020-01-26 09:39] LABS: ANION GAP 11.4 mmol/L (8-16); BLOOD UREA NITROGEN 17 mg/dL (7-26); BUN/CREATININE RATIO 19 (6-25); CALCIUM 8.4 mg/dL (8.4-10.2); CARBON DIOXIDE 23 mmol/L (22-29); CHLORIDE 107 mmol/L (98-107); CREATININE, SERUM 0.88 mg/dL (0.72-1.25); EST GLOMERULAR FILTRATION RATE > 60 ML/MIN (60-); GLUCOSE 220 mg/dL (74-118); POTASSIUM 4.4 mmol/L (3.5-5.1); SODIUM 137 mmol/L (136-145)
--- NOTE | 2020-01-26 14:48 | NUR ---
Nutrition Screen Note RD Recommendation for Physician: -Recommend advancing to GI soft diet when medically appropriate Plan of Care: RD following, monitoring for tolerance and adequacy Nutrition reason for involvement: Nutrition Risk Trigger Primary Diagnose(s): chronic acalculous PMH: no H/P in [facility] at this time Ht:68 in Wt:181 lb BMI: 27.5 kg/m2 IBW:[address] Assessment: (01/26/20) Chart reviewed. Labs and meds reviewed. Pt is a 74 year old male admitted with chronic acalculous. Pt had a laparoscopic cholecystectomy, exploratory laparotomy, and small bowel resection at proximal jejunum and ileum yesterday. Pt is currently NPO. Prior to admission, pt reported he usually ate most of his meals. No weight loss reported and pt mentioned he weighs 179-180 lbs. No N/V noted, but pt stated his throat was sore. Will continue to monitor Current Diet: NPO Malnutrition Evaluation (01/26/20) The patient does not meet criteria for a specified degree of malnutrition at this time. Will re-evaluate at follow-up as appropriate. Diet Education Needs Assessment: Diet education not indicated. Pt is NPO Nutrition Care Level: low Signed: Jolie Hall, RD, LD
[2020-01-26] MEDS: PANTOPRAZOLE 40 MG 10ML VIAL IV SCH (15:41)
--- NOTE | 2020-01-26 19:00 | NUR ---
Patient visited in room during nursing rounds. Patient alert and oriented x3. Ambulatory in room prn with standby assist. Madrigal in place post surgery (s/p lap charmaine and bowel resection). Dresing on abdomen clean, dry and intact and wrapped on abdominal binder. NG tube to Left nare draining dark green fluid. Pt on IVF (NS at 125ml/hr) and SWAMPER Dilaudid pump (on demand only). Pt states pain (on surgical site) off and on. Call fernández within reach. Will monitor closely.
[2020-01-27] VITALS (8 sets, daily range): BP systolic 145–170; BP diastolic 88–96
[2020-01-27] MEDS: CEFOXITIN SOD 1 GM in SODIUM CHLORIDE 0.9% 50ML 50 ML IV SCH ×5 (00:05→23:20)
--- NOTE | 2020-01-27 00:46 | NUR ---
Called and spoke with Dr. Bob Cavanaugh and informed patient has current temp of 101.3 F. MD aware and ordered the following: (1) Make patient cough forcefully with pillow on chest; (2) Make sure patient uses incentive spirometer regularly; (3) Encourage patient to get up and move around to help prevent pneumonia. also ordered Tylenol 650mg suppository q4hr prn for temp > 102 F.
[2020-01-27] MEDS ORDERED: ACETAMINOPHEN 650 MG SUPP PR PRN (01:00)
--- NOTE | 2020-01-27 01:10 | NUR ---
As per request, patient assisted to sit on bedside recliner chair. Patient doing frequent breathing exercises using incentive spirometer and coughing forcefully with pillow on chest. Pt in stable condition.
[2020-01-27] MEDS: INSULIN REGULAR, HUMAN 100 UNIT/1 ML 3ML VIAL SQ SCH ×4 (06:20→16:40)
[2020-01-27] MEDS: SODIUM CHLORIDE 0.9% 1000ML 1,000 ML IV SCH ×3 (06:20→23:20)
[2020-01-27 08:39] LABS: BASOPHILS % 0.2 % (0.0-1.0); EOSINOPHILS % 0.1 % (0.0-6.0); HEMATOCRIT 37.6 % (38.2-49.6); HEMOGLOBIN 12.2 g/dL (14.0-18.0); LYMPHOCYTES # (AUTO) 1.9 (1.0-3.2); LYMPHOCYTES % 14.9 % (18.0-39.1); MEAN CORPUSCULAR HEMOGLOBIN 28.6 pg (28-32); MEAN CORPUSCULAR HGB CONC 32.4 g/dL (31-35); MEAN CORPUSCULAR VOLUME 88.1 fL (81-99); MONOCYTES # (AUTO) 0.8 (0.2-0.8); NEUTROPHILS % 78.3 % (38.7-80.0); PLATELET COUNT 212 x10e3/uL (140-360); RED BLOOD COUNT 4.27 x10e6/uL (4.3-5.7); RED CELL DISTRIBUTION WIDTH 14.1 % (11.7-14.4)
[2020-01-27 08:55] LABS: ANION GAP 13.2 mmol/L (8-16); BLOOD UREA NITROGEN 18 mg/dL (7-26); BUN/CREATININE RATIO 21 (6-25); CALCIUM 8.7 mg/dL (8.4-10.2); CARBON DIOXIDE 23 mmol/L (22-29); CHLORIDE 107 mmol/L (98-107); CREATININE, SERUM 0.84 mg/dL (0.72-1.25); EST GLOMERULAR FILTRATION RATE > 60 ML/MIN (60-); GLUCOSE 205 mg/dL (74-118); POTASSIUM 4.2 mmol/L (3.5-5.1); SODIUM 139 mmol/L (136-145)
[2020-01-27] MEDS ORDERED: CHLORASEPTIC SPRAY 177 ML BTL MM PRN (10:15)
[2020-01-27] MEDS: PANTOPRAZOLE 40 MG 10ML VIAL IV SCH (14:35)
[2020-01-27] MEDS ORDERED: HYDROMORPHONE 0.2MG/ML-SOD CHL 30ML PCA SYRINGE IV ONE (22:09)
[2020-01-28] VITALS (7 sets, daily range): BP systolic 144–173; BP diastolic 84–101
[2020-01-28 05:09] LABS: BASOPHILS % 0.2 % (0.0-1.0); EOSINOPHILS # (AUTO) 0.1 (0.0-0.4); EOSINOPHILS % 1.1 % (0.0-6.0); HEMATOCRIT 33.7 % (38.2-49.6); LYMPHOCYTES # (AUTO) 1.7 (1.0-3.2); LYMPHOCYTES % 18.6 % (18.0-39.1); MEAN CORPUSCULAR HEMOGLOBIN 28.6 pg (28-32); MEAN CORPUSCULAR HGB CONC 32.6 g/dL (31-35); MEAN CORPUSCULAR VOLUME 87.5 fL (81-99); MONOCYTES # (AUTO) 0.5 (0.2-0.8); MONOCYTES % 5.9 % (4.4-11.3); NEUTROPHILS # (AUTO) 6.8 (2.1-6.9); NEUTROPHILS % 73.7 % (38.7-80.0); PLATELET COUNT 173 x10e3/uL (140-360); RED BLOOD COUNT 3.85 x10e6/uL (4.3-5.7); RED CELL DISTRIBUTION WIDTH 13.7 % (11.7-14.4)
[2020-01-28 05:32] LABS: ANION GAP 11.8 mmol/L (8-16); BLOOD UREA NITROGEN 15 mg/dL (7-26); BUN/CREATININE RATIO 19 (6-25); CALCIUM 8.5 mg/dL (8.4-10.2); CARBON DIOXIDE 23 mmol/L (22-29); CHLORIDE 108 mmol/L (98-107); CREATININE, SERUM 0.77 mg/dL (0.72-1.25); EST GLOMERULAR FILTRATION RATE > 60 ML/MIN (60-); GLUCOSE 165 mg/dL (74-118); POTASSIUM 3.8 mmol/L (3.5-5.1); SODIUM 139 mmol/L (136-145)
[2020-01-28] MEDS: INSULIN REGULAR, HUMAN 100 UNIT/1 ML 3ML VIAL SQ SCH ×4 (06:00→17:48)
[2020-01-28] MEDS: SODIUM CHLORIDE 0.9% 1000ML 1,000 ML IV SCH (06:10)
[2020-01-28] MEDS: CEFOXITIN SOD 1 GM in SODIUM CHLORIDE 0.9% 50ML 50 ML IV SCH ×3 (06:10→20:20)
--- NOTE | 2020-01-28 07:04 | NUR ---
bedside change of shift report received from warehouse worker 2nd shift RN; pt awake, alert, sitting up in chair. no signs of distress. no complaints at this time.
--- NOTE | 2020-01-28 10:10 | NUR ---
ASSESSMENT: Spiritual concern Pt worried about illness. Pt states his granddaughter, who "works in a hospital," has been helpful in keeping him and his informed. Intervention: Provided hospitality, empathic listening and prayer. Provided information on how to reach drying frame operator, if needed. Outcome: Pt expressed appreciation for visit. No need to follow at this time. CHUCK CATALAN Child Care Worker Spiritual Care Department O: [phone]
--- NOTE | 2020-01-28 10:20 | NUR ---
pt's NG tube clamped per MD orders. pt requesting to ambulate around room; no signs of distress noted.
[2020-01-28] MEDS: KCL 20MEQ/.9 SOD CHL 1,000 ML IV SCH ×2 (13:45→21:13)
--- NOTE | 2020-01-28 17:00 | NUR ---
pt's NG tube reclamped per MD's orders.
[2020-01-28] MEDS: HYDROMORPHONE 1MG/1ML INJ IV PRN ×2 (17:42→21:53)
[2020-01-28] MEDS: PANTOPRAZOLE 40 MG 10ML VIAL IV SCH (17:42)
--- NOTE | 2020-01-28 20:53 | NUR ---
Spoke with Dr Ge Gonzalez regarding BP 173/95, 110. 1600 BP elevated also reported v/s. New orders received, ensure pain is under control and continue to monitor BP.
[2020-01-28] MEDS ORDERED: ACETAMINOPHEN 1000 MG/100 ML IV PRN (21:00)
[2020-01-28] MEDS ORDERED: CLONIDINE HCL 0.1 MG/24 HR 1 EA PATCH TOP PRN (21:00)
[2020-01-29] VITALS (8 sets, daily range): BP systolic 145–174; BP diastolic 83–103
--- NOTE | 2020-01-29 | NUR ---
Patient NGT clamped per MD orders, tolerating at this time. Will continue to monitor.
[2020-01-29] MEDS: CEFOXITIN SOD 1 GM in SODIUM CHLORIDE 0.9% 50ML 50 ML IV SCH ×4 (02:06→20:49)
--- NOTE | 2020-01-29 05:50 | NUR ---
Patient reporting feeling "queasy" NGT connected to LIWS. Will continue to monitor.
[2020-01-29 05:56] LABS: ANION GAP 13.6 mmol/L (8-16); BLOOD UREA NITROGEN 15 mg/dL (7-26); BUN/CREATININE RATIO 20 (6-25); CALCIUM 8.9 mg/dL (8.4-10.2); CARBON DIOXIDE 22 mmol/L (22-29); CHLORIDE 109 mmol/L (98-107); CREATININE, SERUM 0.75 mg/dL (0.72-1.25); EST GLOMERULAR FILTRATION RATE > 60 ML/MIN (60-); GLUCOSE 159 mg/dL (74-118); POTASSIUM 3.6 mmol/L (3.5-5.1); SODIUM 141 mmol/L (136-145)
[2020-01-29] MEDS: INSULIN REGULAR, HUMAN 100 UNIT/1 ML 3ML VIAL SQ SCH ×5 (06:00→23:36)
--- NOTE | 2020-01-29 06:25 | NUR ---
Patient request to have NGT clamped to go to bathroom, NGT clamped, will continue to monitor.
[2020-01-29] MEDS: KCL 20MEQ/.9 SOD CHL 1,000 ML IV SCH (06:39)
--- NOTE | 2020-01-29 07:00 | NUR ---
BEDSIDE SHIFT REPORT RECEIVED PT IN STABLE CONDITION, KYREE PAIN AT THIS TIME, UPDATED ON POC VOICED UNDERSTANDING, L FA 20G NO SS OF INFILTRATION NOTED, NO OTHER CO VOICED CALL LIGHT IN REACH WILL CONTINUE TO MONITOR
--- NOTE | 2020-01-29 07:13 | NUR ---
Bedside report and walking rounds completed with oncoming nurse. Patient in bed with call light within reach. No issues or concerns noted.
[2020-01-29] MEDS: SODIUM CHLORIDE 0.45% 1,000 ML IV SCH (11:45)
[2020-01-29] MEDS ORDERED: ONDANSETRON HCL INJ 2MG/ML 2ML 2 MG/ML VIAL IV PRN (11:45)
[2020-01-29] MEDS: PANTOPRAZOLE 40 MG 10ML VIAL IV SCH (14:40)
[2020-01-29] MEDS: HYDROCODONE/APAP 7.5MG-325MG 1 EA TAB PO PRN (17:10)
--- NOTE | 2020-01-29 19:05 | NUR ---
WALKING ROUNDS PERFORMED, RECEIVED PT SITTING IN RECLINER, AAOX3, RR EVEN AND NON-LABORED, ON ROOM AIR. NO S/SX OF DISTRESS NOTED. DRESSING TO ANTERIOR ABD NOTED TO BE CDI WITH ABDOMINAL BINDER IN PLACE. LEFT PT SITTING IN RECLINER. CALL LIGHT AND PHONE WITHIN REACH.
--- NOTE | 2020-01-29 19:14 | NUR ---
REPORT GIVEN TO ONCOMING NIGHT NURSE PT LEFT IN STABLE CONDITION.
[2020-01-30] VITALS (8 sets, daily range): BP systolic 126–156; BP diastolic 75–90
[2020-01-30] MEDS: CEFOXITIN SOD 1 GM in SODIUM CHLORIDE 0.9% 50ML 50 ML IV SCH ×4 (02:04→20:00)
[2020-01-30] MEDS: INSULIN REGULAR, HUMAN 100 UNIT/1 ML 3ML VIAL SQ SCH ×4 (05:14→17:56)
[2020-01-30] MEDS: HYDROCODONE/APAP 7.5MG-325MG 1 EA TAB PO PRN ×2 (05:21→18:04)
[2020-01-30] MEDS: SODIUM CHLORIDE 0.45% 1,000 ML IV SCH ×2 (05:52→16:21)
--- NOTE | 2020-01-30 07:00 | NUR ---
RECEIVED PATIENT AWAKE RESTING IN BED NO S/S OF DISTRESS. BED LOW, WHEELS LOCKED, SIDE RAILS X2. CALL LIGHT IN REACH WILL CONTINUE TO MONITOR PATIENT.
[2020-01-30 08:54] LABS: BASOPHILS % 0.2 % (0.0-1.0); EOSINOPHILS # (AUTO) 0.2 (0.0-0.4); EOSINOPHILS % 2.6 % (0.0-6.0); HEMATOCRIT 32.5 % (38.2-49.6); HEMOGLOBIN 10.8 g/dL (14.0-18.0); LYMPHOCYTES # (AUTO) 1.8 (1.0-3.2); MEAN CORPUSCULAR HEMOGLOBIN 28.4 pg (28-32); MEAN CORPUSCULAR HGB CONC 33.2 g/dL (31-35); MEAN CORPUSCULAR VOLUME 85.5 fL (81-99); MONOCYTES # (AUTO) 0.5 (0.2-0.8); MONOCYTES % 6.1 % (4.4-11.3); NEUTROPHILS % 69.4 % (38.7-80.0); PLATELET COUNT 230 x10e3/uL (140-360); RED CELL DISTRIBUTION WIDTH 13.4 % (11.7-14.4)
[2020-01-30 09:17] LABS: ALANINE AMINOTRANSFERASE 30 IU/L (0-55); ALBUMIN 2.5 g/dL (3.5-5.0); ALBUMIN/GLOBULIN RATIO 0.8 (0.8-2.0); ALKALINE PHOSPHATASE 53 IU/L (40-150); ANION GAP 13.6 mmol/L (8-16); BLOOD UREA NITROGEN 14 mg/dL (7-26); BUN/CREATININE RATIO 19 (6-25); CALCIUM 8.7 mg/dL (8.4-10.2); CARBON DIOXIDE 22 mmol/L (22-29); CHLORIDE 107 mmol/L (98-107); CREATININE, SERUM 0.72 mg/dL (0.72-1.25); EST GLOMERULAR FILTRATION RATE > 60 ML/MIN (60-); GLUCOSE 128 mg/dL (74-118); POTASSIUM 3.6 mmol/L (3.5-5.1); SODIUM 139 mmol/L (136-145)
[2020-01-30] MEDS: AMLODIPINE BESYLATE 5 MG TAB PO SCH (09:21)
[2020-01-30] MEDS: BENAZEPRIL HCL 10 MG TAB PO SCH (09:21)
--- NOTE | 2020-01-30 09:57 | Consultation ---
DATE OF CONSULTATION: 01/30/2020 REASON FOR CONSULTATION: Medical management/blood pressure control. HISTORY OF PRESENT ILLNESS: This is a 74-year-old man, who was initially admitted to [facility] with diagnosis of biliary dyskinesia/chronic acalculous cholecystitis and abdominal pain. The patient was seen by his general surgeon namely Dr. Bob Cavanaugh, who initially performed laparoscopic cholecystectomy, but during the surgery was converted to exploratory laparotomy with small bowel resection in two different areas. The patient thus was diagnosed with chronic acalculous cholecystitis as well as chronic small bowel obstruction. The patient tolerated the surgery well. The patient states he still has some abdominal pain, but it has improved. The patient denies any nausea or vomiting. Denies any belching, but he is experiencing flatus. White blood cell count on January 28, 2020 was 9200 with 73% neutrophils. Also on January 28, 2020 hemoglobin was 11 g/dL. On January 29, 2020 BUN and creatinine was 15 and 0.75 respectively. Potassium 3.6. The patient apparently has had elevated blood pressures over the last few days according to the general surgeon. The blood pressures got as high as 174/103. The patient denies any chest pain or tightness. The patient states he was on blood pressure medication previously, but cannot remember the medication. The patient states he does see a local primary care physician namely Dr. Lane. The patient underwent x-ray on January 22, 2020, which did not reveal any evidence of cardiomegaly or pulmonary congestion. REVIEW OF SYSTEMS: GENERAL: Weight is stable. No fever or chills. HEENT: No headaches and no visual changes. CARDIOVASCULAR/RESPIRATORY: No chest pain. No shortness of breath or cough. GI: The patient states he does have some abdominal pain at this time, but it seems to be improving. Denies any nausea or vomiting. He has not had a bowel movement since surgery. He does have flatus though. No belching. : No Madrigal catheter in place. NEUROMUSCULAR: No limb weakness. ALLERGIES: NO KNOWN DRUG ALLERGIES. MEDICATIONS: Home medication was Nexium 40 mg daily. Hospital medications: 1. NS 70 mL an hour. 2. Hydrocodone/acetaminophen 7.5/325 one pill every 4 hours p.r.n. pain. 3. Cefoxitin 1 g intravenous every 6 hours. 4. Ondansetron 4 mg intravenous every 4 hours p.r.n. nausea or vomiting. 5. Pantoprazole 40 mg intravenous daily. 6. Hydromorphone 1 mg intravenous every 4 hours p.r.n. pain. 7. Regular insulin sliding scale. 8. Clonidine patch, it is TTS-1 one patch weekly. 9. Tylenol suppository 650 mg every 4 hours p.r.n. fever. FAMILY HISTORY: Multiple family members with hypertensive heart disease. PAST SURGICAL HISTORY: 1. Laparoscopic cholecystectomy converted to expiratory laparotomy with small- bowel resection in two different areas on January 25, 2020. 2. Previous abdominal hernia repair (2017). 3. Lumbar spine surgery. SOCIAL HISTORY: He is , lives with his . 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 The patient denies any tobacco or alcohol use. PAST MEDICAL HISTORY: 1. Hypertension. 2. GERD. PHYSICAL EXAMINATION: GENERAL: He is awake, alert, and fully oriented. He looks much younger than his stated age. VITAL SIGNS: Height 5 feet 8 inches, weight 180 pounds, BMI 27. Blood pressure 140/86, pulse 86, respiratory rate 18, temperature is 99.2, oxygen saturation 96% on room air. INTEGUMENT: Skin is warm and dry. No pallor, jaundice, or diaphoresis. HEENT: Anterior sclerae with moist mucous membranes. NECK: Supple. CARDIOVASCULAR: Regular rate and rhythm with S4 gallop. LUNGS: No rales. No rhonchi. No wheezes. ABDOMEN: Soft. His exploratory laparotomy incision is currently dressed. He is also wearing abdominal binder. EXTREMITIES: No edema or deformity. NEUROLOGIC: Intact. DIAGNOSES: 1. Status post exploratory laparotomy with cholecystectomy and small bowel resection in two separate areas. 2. Hypertensive heart disease. PLAN: 1. Check renal function and electrolytes. 2. We will check hemoglobin and hematocrit. 3. We will start oral blood pressure medications. 4. We will likely discontinue clonidine patch now that the patient is able to take oral medications. 5. We will order sequential compression devices to prevent deep venous thrombosis. 6. We will recommend incentive spirometry to prevent atelectasis. 7. Mobilize the patient. 8. We will stop intravenous fluids since his blood pressure is elevated. 9. Pain control. I would like to thank Dr. Bob Cavanaugh for this generous consult. Song MD LEXX Herrera /[id number] MTDReece
--- NOTE | 2020-01-30 12:12 | NUR ---
PATIENT TOLERATED CLEAR LIQUID DIET FOR LUNCH. NO NAUSEA/VOMITING.
--- NOTE | 2020-01-30 13:00 | NUR ---
PATIENT HAD LARGE BOWEL MOVEMENT AT THIS TIME.
[2020-01-30] MEDS: PANTOPRAZOLE 40 MG 10ML VIAL IV SCH (14:26)
--- NOTE | 2020-01-30 19:47 | NUR ---
RECEIVED PATIENT IN BED AOX3 NO S/S OF DISTRESS NOTED ABD WITH DRESSING ANB ABD BINDER .DENIES PAIN BED LOW, WHEELS LOCKED, S CALL LIGHT IN REACH WILL CONTINUE TO MONITOR PATIENT
[2020-01-31] VITALS: BP 130/77
[2020-01-31] MEDS: HYDROCODONE/APAP 7.5MG-325MG 1 EA TAB PO PRN (00:52)
[2020-01-31] MEDS: CEFOXITIN SOD 1 GM in SODIUM CHLORIDE 0.9% 50ML 50 ML IV SCH ×2 (02:19→09:34)
[2020-01-31 04:00] VITALS: BP 136/76
[2020-01-31 05:43] LABS: BASOPHILS % 0.3 % (0.0-1.0); EOSINOPHILS # (AUTO) 0.2 (0.0-0.4); EOSINOPHILS % 2.3 % (0.0-6.0); HEMATOCRIT 30.9 % (38.2-49.6); HEMOGLOBIN 10.6 g/dL (14.0-18.0); LYMPHOCYTES # (AUTO) 1.8 (1.0-3.2); LYMPHOCYTES % 22.3 % (18.0-39.1); MEAN CORPUSCULAR HEMOGLOBIN 29.6 pg (28-32); MEAN CORPUSCULAR HGB CONC 34.3 g/dL (31-35); MEAN CORPUSCULAR VOLUME 86.3 fL (81-99); MONOCYTES # (AUTO) 0.5 (0.2-0.8); MONOCYTES % 6.2 % (4.4-11.3); NEUTROPHILS # (AUTO) 5.4 (2.1-6.9); NEUTROPHILS % 68.3 % (38.7-80.0); PLATELET COUNT 223 x10e3/uL (140-360); RED BLOOD COUNT 3.58 x10e6/uL (4.3-5.7); RED CELL DISTRIBUTION WIDTH 13.3 % (11.7-14.4)
[2020-01-31] MEDS: INSULIN REGULAR, HUMAN 100 UNIT/1 ML 3ML VIAL SQ SCH ×3 (06:00→12:00)
--- NOTE | 2020-01-31 06:07 | NUR ---
PT C/O PAIN AND GIVEN ORDERED PAIN MEDICATION ,, CALL LIGHT WITH IN REACH CONTINUE TO MONITOR
[2020-01-31 06:30] LABS: ALANINE AMINOTRANSFERASE 33 IU/L (0-55); ALBUMIN 2.4 g/dL (3.5-5.0); ALBUMIN/GLOBULIN RATIO 0.8 (0.8-2.0); ALKALINE PHOSPHATASE 58 IU/L (40-150); ANION GAP 11.3 mmol/L (8-16); BLOOD UREA NITROGEN 11 mg/dL (7-26); BUN/CREATININE RATIO 14 (6-25); CALCIUM 8.4 mg/dL (8.4-10.2); CARBON DIOXIDE 24 mmol/L (22-29); CHLORIDE 106 mmol/L (98-107); CREATININE, SERUM 0.77 mg/dL (0.72-1.25); EST GLOMERULAR FILTRATION RATE > 60 ML/MIN (60-); GLUCOSE 143 mg/dL (74-118); POTASSIUM 3.3 mmol/L (3.5-5.1); SODIUM 138 mmol/L (136-145)
[2020-01-31] MEDS: SODIUM CHLORIDE 0.45% 1,000 ML IV SCH (06:39)
--- NOTE | 2020-01-31 06:58 | NUR ---
BEDSIDE REPORT GIVEN TO THE ONCOMING NURSE
--- NOTE | 2020-01-31 07:00 | NUR ---
RECEIVED PATIENT AWAKE RESTING IN BED NO S/S OF DISTRESS. BED LOW, WHEELS LOCKED, SIDE RAILS X2. CALL LIGHT IN REACH WILL CONTINUE TO MONITOR PATIENT.
[2020-01-31 09:21] VITALS: BP 151/87
--- NOTE | 2020-01-31 09:31 | NUR ---
Dictated DC summary: [id number]
[2020-01-31] MEDS: AMLODIPINE BESYLATE 5 MG TAB PO SCH (09:34)
[2020-01-31] MEDS: BENAZEPRIL HCL 10 MG TAB PO SCH (09:34)
[2020-01-31 09:43] VITALS: BP 151/87
--- NOTE | 2020-01-31 10:23 | Progress Note ---
DATE: 01/30/2020 CHIEF COMPLAINT/HISTORY OF PRESENT ILLNESS: This is a 74-year-old man, who was initially admitted with diagnosis of chronic cholecystitis/biliary dyskinesia. During this hospitalization, the patient underwent initial laparoscopic cholecystectomy that was converted to exploratory laparotomy and resection of two areas of small bowel. He also underwent cholecystectomy during this surgery. The patient tolerated surgery quite well. The patient is tolerating a full liquid diet this time with no difficulty. He also was experiencing bowel movements as well as belching. The patient states he is very eager to be discharged home. The patient was started on benazepril and amlodipine yesterday for blood pressure control and it has been quite effective. Blood work today revealed a potassium of 3.3. The patient's hemoglobin today is 10.6 g/dL. The patient white blood cell count today 7900 with 68% neutrophils. REVIEW OF SYSTEMS: As per HPI. PHYSICAL EXAMINATION: GENERAL: He is awake, alert, fully oriented, very pleasant and cooperative on exam. VITAL SIGNS: Height 5 feet 8 inches, weight 180 pounds, BMI 27, blood pressure 136/76, pulse 86, respiratory rate 18, temperature 98.7, oxygen saturation 97% on room air. INTEGUMENT: Skin is warm and dry. No pallor, jaundice, diaphoresis. The anterior sclerae moist mucous membranes. NECK: Supple. CARDIOVASCULAR: Regular rhythm with an S4 gallop. LUNGS: No rales. No rhonchi or wheezes. ABDOMEN: Soft. He does have bowel sounds. The exploratory laparotomy incision is currently dressed. He is wearing abdominal binder. EXTREMITIES: No edema or deformity. NEUROLOGIC: Intact. DIAGNOSES: 1. Status post exploratory laparotomy with cholecystectomy and resection of small bowel in two areas. 2. Hypertensive heart disease. PLAN: 1. We will continue benazepril 10 mg and amlodipine 5 mg p.o. daily for blood pressure control. 2. Recommend the patient limit his dietary sodium intake. 3. Recommend the patient continue using incentive spirometry to prevent atelectasis. 4. Agree with surgeon in regard to discharge the patient home today. 5. The patient will follow up with the surgeon namely Dr. Bob Cavanaugh in one week and with his primary care physician namely Dr. Jimmie Lane in 2 weeks. 6. I have left a prescription for Lotrel 12/08 that the patient will take once daily. MD SAGE Grey/DEBBIE /[id number] cc: Jimmie Lane DO MTDReece
[2020-01-31] MEDS ORDERED: POTASSIUM CHLORIDE 10MEQ EA PO ONE (10:30)
[2020-01-31] MEDS ORDERED: ONDANSETRON HCL 4 MG ORAL DISINTEGRATING TAB PO PRN (10:45)
[2020-01-31] MEDS ORDERED: TYLENOL WITH C1 EACH PO (10:53)
[2020-01-31] MEDS ORDERED: LOTREL 5-10 MG1 EACH PO (10:54)
--- NOTE | 2020-01-31 12:20 | NUR ---
REMOVED PATIENTS IV. CATHETER TIP INTACT AND PRESSURE DRESSING APPLIED .
--- NOTE | 2020-01-31 12:50 | NUR ---
PATIENT DISCHARGED FROM FACILITY. PATIENT GATHERED ALL PERSONAL BELONGINGS, DISCHARGE INSTRUCTIONS, AND FOLLOW UP INFORMATION. PATIENT LEFT UNIT IN WHEELCHAIR AND WENT HOME VIA PRIVATE AUTO. NO S/S OF DISTRESS WHEN LEAVING FACILITY.
--- NOTE | 2020-01-31 13:18 | Discharge Summary ---
DISCHARGE DIAGNOSES: 1. Chronic acalculous cholecystitis. 2. Small bowel obstruction secondary to inflammatory process. Final pathology report is pending. PROCEDURES PERFORMED: On admission laparoscopic cholecystectomy converted to exploratory laparotomy and small bowel resection x2 by Bob Cavanaugh. HISTORY OF PRESENT ILLNESS AND HOSPITALIZATION COURSE: The patient is a 74-year-old male admitted for cholecystectomy. He was worked up by GI, was found to have acalculous cholecystitis with a severe ejection fraction, no stones. Preoperatively, the patient was known to me for previous hospitalization over a year ago for small bowel obstruction that resolved itself. Because the patient was complaining of periumbilical intermittent crampy abdominal pain, I went ahead and worked him up further with a small bowel series, which revealed no evidence of obstruction. The patient had several years ago repair of ventral hernia with omphalectomy and mesh. Upon admission, the patient was taken to the operating room and underwent laparoscopic cholecystectomy and I found that he had and mounted set of bowel loops about 2 to 3 feet in total length, I calculate which were matted together almost as they had been enteroplicated with abnormal serosa and thickening and evidence of obstruction, it was decided. As I was running the small bowel a small perforation was made in the proximal jejunum distal to the ligament of Treitz. The patient's laparoscopic procedure was converted to open one and then I went ahead and resected all of the matted set of bowel loops that were causing obstruction and the symptomatology, which led to the workup retrospectively, the reason for his crampy abdominal pain most likely was the small bowel obstruction, even though he had a normal upper GI series. The perforation in the proximal jejunum was handled by resecting about an inch segment of the jejunum in that location and then anastomosed in a [id number] with a stapler as I did with more distal small bowel. Postoperative course was remarkable for increased high blood pressure and elevated sugars. the patient was treated with sliding scale and the high blood pressure was then treated with Catapres patch. The patient was discharged home in stable condition on January 31, 2020. He was discharged home in stable condition. Discharge medications were Tylenol #3. The patient's medical issues were also treated by Dr. Song Lawson, who was consulted during this hospitalization and sent home on oral antihypertensive medicines to be followed up by his primary care doctor as well as his diabetes doctor, Dr. Lane. The patient's condition was stable. consultations to this hospitalization, Dr. Lane. MD DEMETRIUS Granados/DEBBIE /[id number]
--- OUTSIDE RECORDS SUMMARY | 2020-02-29 02:00 | XMS REPORT | Continuity of Care Document ---
Author Author [facility] t Organization [facility] Address 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 Role Phone DO Reece SYED DO PCP LAUREN CORNELIUS Attphys Unavailable OSCAR SINHA Attphys Unavailable MARISA CORMIER Attphys Unavailable Kristian CANSECO Attphys Unavailable MARISA CORMIER Admphys Unavailable Payers Payer Name Policy Type Policy Number Effective Date Expiration Date Andrew SULTANA [id number] 2018 00:00:00 [facility] Medicare A & B [id number] 2009 00:00:00 [facility] Cdc Review Covid19 [id number] [facility] Problems Condition Name Condition Details Condition Category Status Onset Date Resolution Date Last Treatment Date Treating Clinician Comments Source Small bowel obstruction Small bowel obstruction Problem Active [facility] Allergies, Adverse Reactions, Alerts Allergy Name Allergy Type Status Severity Reaction(s) Onset Date Inacti ve Date Treating Clinician Comments Source No Known Allergies DA Active U 2014-03-28 00:00:00 [facility] Social History Social Habit Start Date Stop Date Quantity Comments Source Sex Assigned At 1945 00:00:00 1945 00:[birth year]:00 Male [facility] Medications Ordered Medication Name Filled Medication Name Start Date Stop Da te Current Medication? Ordering Clinician Indication Dosage Frequency Signature (SIG) Comments Components Source Acetaminophen With Codeine (Tylenol With Codeine #3 Ta blet) 1 Each TABLET Acetaminophen With Codeine (Tylenol With Codeine #3 Tablet) 1 Each TABLET Yes 300 Every 4 Hours as needed for Mild Pain (1 -3) Or Fever>100.8 [facility] Amlodipine Besylate/Benazepril (Lotrel 5-10 Mg Capsule ) 1 Each CAPSULE Amlodipine Besylate/Benazepril (Lotrel 5-10 Mg Capsule) 1 Each CAPSULE Yes 1 Daily [facility] Esomeprazole Magnesium (Nexium) 40 Mg CAPSULE.DR Bowen prazole Magnesium (Nexium) 40 Mg CAPSULE. Yes 40 Daily [facility] Amoxicillin Amoxicillin 2018-10-03 00:00:00 No 1000 T wice A Day [facility] Clarithromycin Clarithromycin 2018-10-03 00:00:00 No 500 Twice A Day [facility] Vital Signs Vital Name Observation Time Observation Value Comments Source Body Temperature 2020-01-31 09:43:00 98.4 [degF] [facility] Weight 2020-01-25 17:02:00 181 [lb_av] [facility] BMI (Body Mass Index) 2020-01-25 17:02:00 27.5 kg/m2 [facility] Procedures Procedure Date / Time Performed Performing Clinician [facility] e X-ray of chest, two views 2020-01-22 00:00:00 [facility] US abdomen complete 2019-10-15 00:00:00 [facility] Plan of Care Planned Activity Planned Date Details Comments Source Instructions Post Operative Pain [facility] Encounters Start Date/Time End Date/Time Encounter Type Admission Type Attendi [facility] Care Department Encounter ID Source 2020-01-25 13:34:00 2020-01-31 12:50:00 Discharged Inpatient [address] [facility] [id number] [facility] 2020-01-14 07:58:00 2020-01-14 07:58:00 Registered Clinic [address] [facility] [id number] [facility] 2019-10-15 09:03:00 2019-10-15 09:03:00 Registered Clinic [address] [facility] [id number] [facility] 2018-07-24 10:21:00 2018-07-26 20:00:00 Discharged Inpatient 1 MARISA CORMIER [facility] [id number] [facility] 2017-11-20 11:53:00 2017-11-20 15:21:00 Departed Emergency Room ER SINA CANSECO [facility] [id number] [facility] Results Test Description Test Time Test Comments Results Result Comments Source Blood leukocytes automated count (number/volume) 2020-01-31 05:30:00 Test Item White Blood Count (test code = 6690-2) 7.91 4.8-10.8 [facility] automated count (number/volume)2020-01-31 05:30:00* Test Item Value Reference Range Interpretation Comments Red Blood Count (test code = 789-8) 3.58 4.3-5.7 [facility] measurement (moles/volume)2020-01-31 05:30:00* Test Item Value Reference Range Interpretation Comments Hemoglobin (test code = 73870-5) 10.6 14.0-18.0 [facility] hematocrit (volume fraction)2020-01-31 05:30:00* Test Item Value Reference Range Interpretation Comments Hematocrit (test code = 4544-3) 30.9 38.2-49.6 [facility] erythrocyte mean corpuscular orsako1579-64-78 05:30:00* Test Item Value Reference Range Interpretation Comments Mean Corpuscular Volume (test code = 787-2) 86.3 81-99 [facility] mean corpuscular hemoglobin (mass per erythrocyte)2020-01-31 05:30:00* Test Item Value Reference Range Interpretation Comments Mean Corpuscular Hemoglobin (test code = 785-6) 29.6 28-32 [facility] eryth[facility] mean corpuscular hemoglobin concentration measurement (mass/volume)2020-01-31 05:30:00* Test Item Value Reference Range Interpretation Comments Mean Corpuscular Hemoglobin Concent (test code = 786-4) 34.3 31-35 [facility]anoRDW IhfRu-Qxt0400-65-02 05:30:00* Test Item Value Reference Range Interpretation Comments Red Cell Distribution Width (test code = 15673-4) 13.3 11.7 -14.4 [facility] platelet count (count/volume)2020-01-31 05:30:00* Test Item Value Reference Range Interpretation Comments Platelet Count (test code = 777-3) 223 140-360 [facility] blood segmented neutrophil count as percentage of total wqzhtzktxo8258-90-49 05:30:00* Test Item Value Reference Range Interpretation Comments Neutrophils (%) (Auto) (test code = 65435-4) 68.3 38.7-80.0 [facility] lymphocyte count as percentage ot total tgllmcaocy4298-41-38 05:30:00* Test Item Value Reference Range Interpretation Comments Lymphocytes (%) (Auto) (test code = 736-9) 22.3 18.0-39.1 [facility] monocyte count as percentage of total uczxkyrirf2809-36-32 05:30:00* Test Item Value Reference Range Interpretation Comments Monocytes (%) (Auto) (test code = 5905-5) 6.2 4.4-11.3 [facility] blood eosinophil count as percentage of total mzisjmdzvk3584-66-65 05:30:00* Test Item Value Reference Range Interpretation Comments Eosinophils (%) (Auto) (test code = 713-8) 2.3 0.0-6.0 [facility] basophil count as percentage of total uiwjltrall1133-85-09 05:30:00* Test Item Value Reference Range Interpretation Comments Basophils (%) (Auto) (test code = 706-2) 0.3 0.0-1.0 [facility]anoFluoroscopic procedure less than one hour glsaxfmp5448-27-32 05:30:00* Test Item Value Reference Range Interpretation Comments IM GRANULOCYTES % (test code = IM GRANULOCYTES %) 0.6 0.0- 1.0 [facility] neutrophil count 2020-01-31 05:30:00* Test Item Value Reference Range Interpretation Comments Neutrophils # (Auto) (test code = 751-8) 5.4 2.1-6.9 [facility] lymphocytes count (number/volume) 2020-01-31 05:30:00* Test Item Value Reference Range Interpretation Comments Lymphocytes # (Auto) (test code = 28829-9) 1.8 1.0-3.2 [facility] monocytes automated count (number/volume)2020-01-31 05:30:00* Test Item Value Reference Range Interpretation Comments Monocytes # (Auto) (test code = 742-7) 0.5 0.2-0.8 [facility] blood eosinophil count 2020-01-31 05:30:00* Test Item Value Reference Range Interpretation Comments Eosinophils # (Auto) (test code = 711-2) 0.2 0.0-0.4 [facility] blood basophil count (count/volume)2020-01-31 05:30:00* Test Item Value Reference Range Interpretation Comments Basophils # (Auto) (test code = 704-7) 0.0 0.0-0.1 [facility]anoFluoroscopic procedure less than one hour foupsjwo9365-41-64 05:30:00* Test Item Value Reference Range Interpretation Comments Absolute Immature Granulocyte (auto (naga t code = Absolute Immature Granulocyte (auto) 0.05 0-0.1 [facility] sodium measurement (moles/volume)2020-01-31 05:30:00* Test Item Value Reference Range Interpretation Comments Sodium Level (test code = 2951-2) 138 136-145 [facility] potassium measurement (moles/volume)2020-01-31 05:30:00* Test Item Value Reference Range Interpretation Comments Potassium Level (test code = 2823-3) 3.3 3.5-5.1 [facility] chloride measurement (moles/volume)2020-01-31 05:30:00* Test Item Value Reference Range Interpretation Comments Chloride Level (test code = 2075-0) 106 98-107 [facility] plasma carbon dioxide, total measurement (moles/volume)2020-01-31 05:30:00* Test Item Value Reference Range Interpretation Comments Carbon Dioxide Level (test code = 2028-9) 24 22-29 [facility] plasma anion zkn7897-11-94 05:30:00* Test Item Value Reference Range Interpretation Comments Anion Gap (test code = 21150-7) 11.3 8-16 [facility] urea nitrogen measurement (mass/volume)2020-01-31 05:30:00* Test Item Value Reference Range Interpretation Comments Blood Urea Nitrogen (test code = 3094-0) 11 7-26 [facility] creatinine measurement (mass/volume)2020-01-31 05:30:00* Test Item Value Reference Range Interpretation Comments Creatinine (test code = 2160-0) 0.77 0.72-1.25 [facility] plasma urea nitrogen/creatinine mass pckun0240-33-24 05:30:00* Test Item Value Reference Range Interpretation Comments BUN/Creatinine Ratio (test code = 3097-3) 14 6-25 [facility]ated glomerular filtration rate (GFR) oxngsnrsnpojq5440-10-08 05:30:00* Test Item Value Reference Range Interpretation Comments Estimat Glomerular Filtration Rate (test code = 143766349) > 60 >60 Ranges were taken from the National Kidney Disease Education Program and the [employer] literature.Reference ranges:60 or greater: Lttlfq27-52 ( for 3 consecutive months): Chronic kidney disease 15 or less: Kidney failureTexas Health Presbyterian Hospital PlanoGlucose scyjqqxhkgk3619-94-49 05:30:00* Test Item Value Reference Range Interpretation Comments Glucose Level (test code = DNT5200) 143 74-118 [facility] calcium measurement (mass/volume)2020-01-31 05:30:00* Test Item Value Reference Range Interpretation Comments Calcium Level (test code = 05098-0) 8.4 8.4-10.2 [facility] plasma total bilirubin measurement (mass/volume)2020-01-31 05:30:00* Test Item Value Reference Range Interpretation Comments Total Bilirubin (test code = 1975-2) 0.7 0.2-1.2 [facility]anoFluoroscopic procedure less than one hour ubpynzqe2441-80-39 05:30:00* Test Item Value Reference Range Interpretation Comments Aspartate Amino Transf (AST/SGOT) (test code = Aspartate Amino Transf (AST/SGOT)) 31 5-34 [facility] plasma alanine aminotransferase measurement (enzymatic activity/volume)2020-01-31 05:30:00* Test Item Value Reference Range Interpretation Comments Alanine Aminotransferase (ALT/SGPT) (test code = 1742-6) 33 0-55 [facility] plasma protein measurement (mass/volume)2020-01-31 05:30:00* Test Item Value Reference Range Interpretation Comments Total Protein (test code = 2885-2) 5.5 6.5-8.1 [facility] plasma albumin measurement (mass/volume)2020-01-31 05:30:00* Test Item Value Reference Range Interpretation Comments Albumin (test code = 1751-7) 2.4 3.5-5.0 [facility] globulin measurement (mass/volume) 2020-01-31 05:30:00* Test Item Value Reference Range Interpretation Comments Globulin (test code = 15159-8) 3.1 2.3-3.5 [facility] plasma albumin/globulin mass zanvw0469-16-86 05:30:00* Test Item Value Reference Range Interpretation Comments Albumin/Globulin Ratio (test code = 1759-0) 0.8 0.8-2.0 [facility] or plasma alkaline phosphatase measurement (enzymatic activity/volume)2020-01-31 05:30:00* Test Item Value Reference Range Interpretation Comments Alkaline Phosphatase (test code = 6768-6) 58 40-150 [facility]anoCapillary blood glucose measurement by glucometer (mass/volume)2020-01-31 05:23:00* Test Item Value Reference Range Interpretation Comments Bedside Glucose (test code = 08191-2) 149 70-120 Meter ID: [id number] Hermann [facility] HospitalFluoroscopic procedure less than one hour fpcvtvvs3511-90-72 14:00:00* Test Item Value Reference Range Interpretation Comments Coronavirus (PCR) (test code = Coronavirus (PCR)) NOT DETECTED NOTD ETECTED SARS-COV-2 (COVID19), HIGHRISK, RT-PCRNegative results do not preclude SARS-CoV- 2 infection and should not be used as the sole basis for patient management deci sions. Negative results must be combined with clinical observations, patient his tory, and epidemiological information. Optimum specimen types and timing for pea k viral levels during infections caused by SARS-CoV-2 have not been determined. Collection of multiple specimens ot types of specimens may be necessary to detec t virus. Improper specimen collection and handling, sequence variability under p rimers/probes, or organism present below the limit of detection may lead to fals e negative results. Positive and negative predictive values of testing are highl y dependent on prevalance. False negative test results are more likely when prev alence is high.The expected result is negative (not detected).The SARS-CoV-2 naga t is intended for the qualitative detection of nucleic acid from SARS-CoV-2 in n asopharyngeal and oropharyngeal swab samples from patients who meet COVID-19 cli nical and or epidemiological criteria. For lower respiratory tract specimens, th e assay is submitted for authoriztion by FDA under an Emergency Use Authorizatio n (EUA). Testing methodology is real time RT-PCR. If received as separate collec tion devices, nasopharygeal and oropharyngeal specimens are combined for analysi s. Additional specimens may be split to a separate accession for analysi and rep orting as this test includes a single unit of service.Test results must be corre lated with clinical presentation and evaluated in the context of other laborator y and epidemiologic data. Test performance can be affected because the epidemiol ogy and clinical spectrum of infection caused by SARS-CoV-2 is not fully known. For example, the optimum types of specimens to collect and when during the cours e of infection these specimens are most likely to contain detectable viral RNA m ay not be known.This test has not been Food and Drug Administration (FDA) cleare d or approved and has been authorized by FDA under an Emergency Use Authorizatio n (EUA). The test is only authorized for the duration of the declaration that ci rcumstances exist justifying the authorization of emergency use of in vitro diag nostic tests for detection and/or diagnosis of SARS-CoV-2 under section 564(b) o f the Act, 21 U.S.C. section 360bbb-3(b)(1), unless the authorization is termina mikael or revoked sooner. [facility] are certified under the C linical Laboratory Improvement Amendments of 1988 (CLIA), 42 U.S.C. section 263a , to perform high complexity tests.Testing performed by [facility] [id number] [place], [place] [id number] Director: Vinod Dyer M.D.CLIA # [id number] [facility] 2 [id number] 13:49:00 [place] [address] Patient Name: KWAKU SOLANO MR #: [id number] : 1945 Age/Sex: 74/M Req #: [id number] Adm Physician: Ordered by: LAUREN CORNELIUS MD Report #: [id number] Location: OR Room/Bed: Procedure: DX/CHEST 2 V IEWS Exam Date: 01/22/20 Exam Time: 1326 REPORT STATUS: Signed EXAMINATION: CHEST 2 VIEWS INDICATION: Pre-operative COMPARISON: None FINDIN GS: LINES/TUBES:None LUNGS:The lungs are well-inflated. No focal conso lidation or pulmonary edema. PLEURA:No pleural effusion or pneumothorax. MEDIASTINUM:The cardiomediastinal silhouette appears normal in size and shape . BONES/SOFT TISSUES:No acute osseous injury. ABDOMEN:No free air unde r the diaphragm. IMPRESSION: No focal pneumonia or pulmonary edema. Signed by: Alejandrina Kidd MD on 01/22/2020 1:49 PM Dictated By: ALEJANDRINA Mejias MD 1349 Transcribed By: NOVA on 01/22/20 1349 COPY TO: LAUREN CORNELIUS MD SMALL BOWEL [id number] 13:20:00 [place] [address] Patient Name: KWAKU SOLANO MR #: [id number] : 1945 Age/Sex: 74/M Req #: [id number] Adm Physician: Ordered by: LAUREN CORNELIUS MD Report #: [id number] Location: DX Room/Bed: Procedure: DX/SMALL BOW EL SERIES Exam Date: 01/14/20 Exam Time: 0850 REPORT STATUS: Signed EXAM: SMALL BOW EL SERIES DATE: 01/14/2020 8:50 AM INDICATION: Chronic acalculus chol ecystitis, abdominal pain COMPARISON: Abdominal radiograph from 8 Fluoroscopy Time: 0.3 minus min. Reference Air Kerma (Ka, r): 5.49 mGy. FINDINGS: Scan images demonstrate spinal wires projecting over the lower lumbar spine and sacrum. Enteric contrast material was provided orally w ithout complication. Small bowel transit time is within normal limits with con trast material reaching the colon within 2 hours. The visualized gastric folds are unremarkable. Small bowel folds are unremarkable without evidence of fixe d filling defect, intrinsic/extrinsic compression, extravasation, or other muc osal abnormality. Spot images were performed of the terminal ileum which demon strate no significant abnormalities. IMPRESSION: Unremarkable sma ll bowel follow-through examination. Signed by: Dr. Geovany Everett MD on 12/30 1:25 PM Dictated By: GEOVANY EVERETT MD 1325 Transcribed By: NOVA on 01/14/20 1325 C OPY TO: LAUREN CORNELIUS MD HEPTOBILIARY W [id number] 19:21:00 [place] [address] Patient Name: KWAKU SOLANO MR #: [id number] : 1945 Age/Sex: 74/M Req #: [id number] Adm Physician: Ordered by: OSCAR SINHA MD Report #: [id number] Location: US Room/Bed: Procedure: [id number] NM/YESI PTOBILIARY W PHARM Exam Date: 10/15/19 Exam Time: 11 57 REPORT STATUS: Signed Hepatob iliary Scan with Gallbladder Ejection Fraction Clinical information: Upper abdominal pain Technique: Following intravenous administration of 5.4 edith curies of Tc-99m mebrofenin, dynamic images of the abdomen in the anterior pro jection were obtained through 20 minutes. Sincalide (CCK analog) 1.9 microgra ms was administered intravenously over 30 minutes with additional imaging for determination of gallbladder ejection fraction. Discussion: Perfusion of the liver is normal. Extraction of tracer by the liver parenchyma is mildly p rolonged. Tracer appears promptly within the biliary tract. The gallbladder begins to fill at 15 minutes post injection of tracer and fills adequately. T racer is seen in the small bowel during the sincalide infusion. There is no c ontractile response by the gallbladder to the pharmacologic dose of sincalide. No emptying of the gallbladder occurs during the 30 minute infusion. Impression: 1. Filling of the gallbladder excludes acute cystic duct obst ruction/acute cholecystitis. 2. The gallbladder ejection fraction is undefi edmund as there is no emptying of the gallbladder during the infusion of sincalid e. This absence of a contractile response to sincalide supports the clinical diagnosis of chronic cholecystitis/gallbladder dyskinesia. Signed by: Dr. Rayne Leblanc M.D. on 10/15/2019 7:23 PM Dictated By: RAYNE LEBLANC MD Elec tronically Signed By: RAYNE LEBLANC MD on 10/15/191922 Transcribed By: NOVA [place] 10/15/191922 COPY TO: OSCAR SINHA MD ABDOMEN COMPLETE 2019-10-15 11:24:00 [place] [address] Patient Name: KWAKU SOLANO MR #: [id number] : 1945 Age/Sex: 74/M Req #: [id number] Adm Physician: Ordered by: OSCAR SINHA MD Report #: [id number] Location: US Room/Bed: Procedure: [id number] US/US ABDOMEN COMPLETE Exam Date: Exam Time: REPORT STATUS: Signed EXAM: US ABDOMEN COM PLETE DATE: 10/15/2019 9:13 AM INDICATION: Abdominal pain COMPARISON: C T abdomen and pelvis of 07/23/2018 TECHNIQUE: Transverse and longitudinal gra y scale and color doppler sonographic images of the upper abdomen were obtaine d. FINDINGS: LIVER 17.9 cm in the right midclavicular line. Increased echogenicity of the liver with normal contour, no masses. 1.5 cm rig ht hepatic cyst. SPLEEN 12.2 cm in maximum diameter. Normal echogenicit y, no masses. GALLBLADDER No gallbladder wall thickening, distension, sto ne, or pericholecystic fluid. Negative reported sonographic Garay's sign. The gallbladder wall measures 3mm BILE DUCTS No intra nor extra-hepatic bili magda dilation. Common bile duct measures 4mm PANCREAS: Visualized portions are normal. RIGHT KIDNEY: 16.2 cm Echogenicity: Normal Collecting Syst em: No hydronephrosis Stones: None Cyst/Mass: Mid pole 2.5 x 2.3 x 2.1 cm anechoic simple cyst. LEFT KIDNEY: Absent VESSELS: Aorta: Visualiz ed portions are within normal size limits Inferior Vena Cava: Visualized porti ons are normal Main Portal Vein: 1.3 cm, normal size with hepatopetal flow. FREE FLUID: None IMPRESSION: Hepatic steatosis and borderline hepatome polo. Signed by: Alejandrina Kidd MD on 10/15/2019 11:27 AM Dictated By : ALEJANDRINA KIDD MD 112 Trans cribed By: NOVA on 10/15/19 1127 COPY TO: OSCAR SINHA MD Bedside [id number] 16:24:00* Test Item Value Reference Range Interpretation Comments Bedside Glucose (test code = 19112-8) 148 70-120 H Meter ID: [id number] [facility] 2018-07-26 10:47:00* Test Item Value Reference Range Interpretation Comments Blood Culture (test code = 54055035) NO GROWTH AFTER 48 HOURS [facility] [id number] 06:48:00 [facility] [address] [address] Patient Name: KWAKU SOLANO MR #: [id number] : 1945 Age/Sex: 73/M Req #: [id number] Adm Physician: MARISA CORMIER MD Ordered by: LAUREN CORNELIUS MD Report #: [id number] Location: MED/SURG Room/Bed: [facility] Procedure: [id number] DX/ABDOMEN 2 VIEW Exam Date: Exam Time: REPORT STATUS: Signed Exam: Abdominal x-ra y Indication: Small bowel obstruction Comparison: Abdominal x-ray July 02[address] CT of the abdomen and pelvis July 23, 2018 Findings: Re solution of dilated loops of small bowel. Air is seen throughout the colon. St able appearance of the soft tissues and bones. Impression: Resolution of small bowel obstruction. Signed by: Dr. Janneth Mota M.D. 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 [employer] Y TO: LAUREN CORNELIUS MD Sodium Itriw2956-10-68 03:34:00* Test Item Value Reference Range Interpretation Comments Sodium Level (test code = 2951-2) 135 136-145 L [facility] Hfonc8710-26-91 03:34:00* Test Item Value Reference Range Interpretation Comments Potassium Level (test code = 2823-3) 3.6 3.5-5.1 [facility] [id number] 03:34:00* Test Item Value Reference Range Interpretation Comments Chloride Level (test code = 2075-0) 106 98-107 [facility]anoCarbon Dioxide Bhuzs3170-24-30 03:34:00* Test Item Value Reference Range Interpretation Comments Carbon Dioxide Level (test code = 2028-9) 20 22-29 L [facility]anoAnion Tlo8095-19-03 03:34:00* Test Item Value Reference Range Interpretation Comments Anion Gap (test code = 58254-1) 12.6 8-16 [facility]anoBlood Urea Ieuqhtpm5772-76-39 03:34:00* Test Item Value Reference Range Interpretation Comments Blood Urea Nitrogen (test code = 3094-0) 10 02-23 [facility]anoCreatinine2018-12-26 03:34:00* Test Item Value Reference Range Interpretation Comments Creatinine (test code = 2160-0) 0.93 0.72-1.25 [facility]anoBUN/Creatinine Vgtjl5724-44-24 03:34:00* Test Item Value Reference Range Interpretation Comments BUN/Creatinine Ratio (test code = 3097-3) 11 01-23 [facility] PlanoEstimat Glomerular Filtration Rate 2018-07-26 03:34:00* Test Item Value Reference Range Interpretation Comments Estimat Glomerular Filtration Rate (test code = 941295244) > 60 >60 Ranges were taken from the National Kidney Disease Education Program and the [facility] literature.Reference ranges:60 or greater: Ivgdfb57-00 ( for 3 consecutive months): Chronic kidney disease 15 or less: Kidney failureTexas [facility] PlanoGlucose Rdfjq4225-69-80 03:34:00* Test Item Value Reference Range Interpretation Comments Glucose Level (test code = QYS3591) 150 74-118 H [facility]anoCalcium Jkfws5198-85-13 03:34:00* Test Item Value Reference Range Interpretation Comments Calcium Level (test code = 16285-9) 9.6 8.4-10.2 [facility]anoMagnesium Disqi4118-36-49 03:34:00* Test Item Value Reference Range Interpretation Comments Magnesium Level (test code = 51330-1) 2.3 1.3-2.1 H [facility]anoHemoglobin A1c Rwgyecl1911-27-86 03:26:00 * Test Item Value Reference Range Interpretation Comments Hemoglobin A1c Percent (test code = Hemoglobin A1c Percent) 7.2 4.0-7.0 H [facility]anoWhite Blood Ujikw4785-17-06 03:21:00* Test Item Value Reference Range Interpretation Comments White Blood Count (test code = 6690-2) 7.10 4.8-10.8 [facility]anoRed Blood Fwcls6270-69-24 03:21:00* Test Item Value Reference Range Interpretation Comments Red Blood Count (test code = 789-8) 4.97 4.3-5.7 [facility]anoHemoglobin2018-12-26 03:21:00* Test Item Value Reference Range Interpretation Comments Hemoglobin (test code = 74783-4) 14.6 14.0-18.0 [facility]anoHematocrit2018-12-26 03:21:00* Test Item Value Reference Range Interpretation Comments Hematocrit (test code = 4544-3) 41.9 38.2-49.6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
== END 2020-01-31 12:50 | disposition home or self-care (01) | DRG 329 ==
LOC: OR 05:35 → PACU V 13:34 → MED/SURG 15:32
PROVIDERS: ADMIT Surgery; ATTEND Surgery
PROC: 0DBV4ZX Excision of Mesentery, Percutaneous Endoscopic Approach, Diagnostic (ICD-10-PCS; 2020-01-25)
PROC: 0DBU4ZX Excision of Omentum, Percutaneous Endoscopic Approach, Diagnostic (ICD-10-PCS; 2020-01-25)
PROC: 0FT44ZZ Resection of Gallbladder, Percutaneous Endoscopic Approach (ICD-10-PCS; principal; 2020-01-25 07:42)
PROC: 0DT80ZZ Resection of Small Intestine, Open Approach (ICD-10-PCS; 2020-01-25 07:42)
DX: K56.609 Unspecified intestinal obstruction, unspecified as to partial versus complete obstruction (principal); K63.1 Perforation of intestine (nontraumatic); K65.8 Other peritonitis; K81.1 Chronic cholecystitis; Z11.59 Encounter for screening for other viral diseases; Z53.31 Laparoscopic surgical procedure converted to open procedure
CPT/HCPCS: 36415; 71046; 80048; 80053; 82948; 85025; 88304; 88305; 88307; 93005; C1766; J0360; J0690; J0694; J1100; J1170; J1817; J2001; J2370; J2405; J2710; J3010; J3480; J7030; U0002

== ENCOUNTER → 2021-01-20 | Outpatient (CLI) | payer MEDICARE ==
[~2021-01-20] MED LIST changes: +FLOMAX0.4 MG PO; +IOPAMIDOL 370 MG/ML 200 ML INFUS..BTL INJ ONE; +LOTREL 5-10 MG1 EACH PO; +SODIUM CHLORIDE 0.9% 50ML 50 ML ONE; +TYLENOL WITH C1 EACH PO
== END ==
LOC: CT 15:14
PROVIDERS: ATTEND Internal Medicine Gastroenterology
DX: R10.84 Generalized abdominal pain (principal); K52.9 Noninfective gastroenteritis and colitis, unspecified
CPT/HCPCS: 74177; Q9967

== ENCOUNTER → 2021-01-27 | Day surgery (SDC) | payer MEDICARE ==
[2021-01-26 15:01] LABS: BASOPHILS % 0.3 % (0.0-1.0); EOSINOPHILS # (AUTO) 0.2 (0.0-0.4); HEMATOCRIT 41.6 % (38.2-49.6); HEMOGLOBIN 14.1 g/dL (14.0-18.0); LYMPHOCYTES # (AUTO) 2.3 (1.0-3.2); LYMPHOCYTES % 38.7 % (18.0-39.1); MEAN CORPUSCULAR HEMOGLOBIN 29.4 pg (28-32); MEAN CORPUSCULAR HGB CONC 33.9 g/dL (31-35); MEAN CORPUSCULAR VOLUME 86.8 fL (81-99); MONOCYTES # (AUTO) 0.4 (0.2-0.8); MONOCYTES % 5.8 % (4.4-11.3); NEUTROPHILS # (AUTO) 3.1 (2.1-6.9); NEUTROPHILS % 51.9 % (38.7-80.0); PLATELET COUNT 176 x10e3/uL (140-360); RED BLOOD COUNT 4.79 x10e6/uL (4.3-5.7); RED CELL DISTRIBUTION WIDTH 13.7 % (11.7-14.4)
[~2021-01-27] MED LIST changes: +HYOSCYAMINE SULFATE 0.5 MG/ML INJ ONE; -IOPAMIDOL 370 MG/ML 200 ML INFUS..BTL INJ ONE; +LIDOCAINE HCL 2% LOCAL INJ 5 ML SDV VIAL INJ ONE; +PROPOFOL IV EMULSION 10 MG/ML 20 ML VIAL ONE; -SODIUM CHLORIDE 0.9% 50ML 50 ML ONE
[2021-01-27 14:25] VITALS: BP 119/92
[2021-01-27 15:41] LABS: WBC,FECAL (FECAL LACTOFERRIN) NEGATIVE (NEGATIVE)
[2021-01-28 14:33] LABS: C DIFFICILE TOXIN A&B AMP PROB NEGATIVE (NEGATIVE)
== END | disposition home or self-care (01) ==
LOC: OR 10:54
PROVIDERS: ATTEND Internal Medicine Gastroenterology
DX: K52.9 Noninfective gastroenteritis and colitis, unspecified (principal); Z86.010 Personal history of colon polyps; K62.89 Other specified diseases of anus and rectum; K64.8 Other hemorrhoids; R03.0 Elevated blood-pressure reading, without diagnosis of hypertension; E11.9 Type 2 diabetes mellitus without complications; M19.90 Unspecified osteoarthritis, unspecified site; Z01.810 Encounter for preprocedural cardiovascular examination; Z01.812 Encounter for preprocedural laboratory examination; Z90.5 Acquired absence of kidney; Z87.891 Personal history of nicotine dependence
CPT/HCPCS: 36415; 45380; 83630; 83993; 85025; 87045; 87177; 87328; 87493; 88305; 93005; J1980; J2001; J2704

== ENCOUNTER → 2022-03-10 | Outpatient (CLI) | payer MEDICARE ==
[~2022-03-10] MED LIST changes: -HYOSCYAMINE SULFATE 0.5 MG/ML INJ ONE; -LIDOCAINE HCL 2% LOCAL INJ 5 ML SDV VIAL INJ ONE; -PROPOFOL IV EMULSION 10 MG/ML 20 ML VIAL ONE
== END ==
LOC: MRI 08:35
PROVIDERS: ATTEND Specialist
DX: M17.11 Unilateral primary osteoarthritis, right knee (principal); S83.221A Peripheral tear of medial meniscus, current injury, right knee, initial encounter

== ENCOUNTER → 2022-04-07 | Outpatient (CLI) | payer MEDICARE ==
[2022-04-02 15:42] LABS: HEMOGLOBIN 13.7 g/dL (14.0-18.0); LYMPHOCYTES % 41.2 % (18.0-39.1); MEAN CORPUSCULAR HEMOGLOBIN 29.3 pg (28-32); MEAN CORPUSCULAR HGB CONC 33.4 g/dL (31-35); MEAN CORPUSCULAR VOLUME 87.8 fL (81-99); NEUTROPHILS % 49.7 % (38.7-80.0); PLATELET COUNT 186 x10e3/uL (140-360); RED BLOOD COUNT 4.67 x10e6/uL (4.3-5.7); RED CELL DISTRIBUTION WIDTH 13.8 % (11.7-14.4)
[2022-04-02 15:43] LABS: BASOPHILS % 0.5 % (0.0-1.0); EOSINOPHILS # (AUTO) 0.2 (0.0-0.4); EOSINOPHILS % 3.1 % (0.0-6.0); LYMPHOCYTES # (AUTO) 2.6 (1.0-3.2); MONOCYTES # (AUTO) 0.3 (0.2-0.8); MONOCYTES % 5.2 % (4.4-11.3); NEUTROPHILS # (AUTO) 3.2 (2.1-6.9)
[2022-04-02 16:05] LABS: CALCIUM 9.1 mg/dL (8.4-10.2); CREATININE, SERUM 0.85 mg/dL (0.72-1.25)
== END | disposition home or self-care (01) ==
LOC: OR 06:51 → RAD 06:51 → EDSTATUS 08:30
PROVIDERS: ATTEND Specialist
DX: S83.241A Other tear of medial meniscus, current injury, right knee, initial encounter (principal); X58.XXXA Exposure to other specified factors, initial encounter; Z01.810 Encounter for preprocedural cardiovascular examination; Z01.812 Encounter for preprocedural laboratory examination; Z01.818 Encounter for other preprocedural examination; Z53.9 Procedure and treatment not carried out, unspecified reason
CPT/HCPCS: 36415; 71046; 80048; 85025; 93005

== ENCOUNTER → 2022-04-21 | Day surgery (SDC) | payer MEDICARE ==
[~2022-04-21] MED LIST changes: +BUPIVACAINE 0.25% 30ML SDV ONE; +DEXAMETHASONE SOD PHOS INJ 4 MG/ML SDV ONE; +FENTANYL CITRATE/PF 100MCG/2 ML INJ ONE; +LIDOCAINE HCL 2% LOCAL INJ 5 ML SDV VIAL INJ ONE; +ONDANSETRON HCL INJ 2MG/ML 2ML 2 MG/ML VIAL ONE; +POVIDONE IODINE 0.05% 0.05 % ML PO ONE; +PROPOFOL IV EMULSION 10 MG/ML 20 ML VIAL ONE; +SEVOFLURANE INHAL SOLN 250 ML PEN BTL ONE
[2022-04-21 09:23] VITALS: BP 130/84
== END | disposition home or self-care (01) ==
LOC: OR 05:42
PROVIDERS: ATTEND Specialist
DX: S83.221A Peripheral tear of medial meniscus, current injury, right knee, initial encounter (principal); M17.11 Unilateral primary osteoarthritis, right knee; M22.41 Chondromalacia patellae, right knee; E11.9 Type 2 diabetes mellitus without complications; I10 Essential (primary) hypertension; I44.60 Unspecified fascicular block; X58.XXXA Exposure to other specified factors, initial encounter; Z98.1 Arthrodesis status
CPT/HCPCS: 29881; J0690; J1100; J2001; J2405; J2704; J3010

== ENCOUNTER → 2022-09-30 | Outpatient (CLI) | payer MEDICARE ==
[~2022-09-30] MED LIST changes: -BUPIVACAINE 0.25% 30ML SDV ONE; -DEXAMETHASONE SOD PHOS INJ 4 MG/ML SDV ONE; -FENTANYL CITRATE/PF 100MCG/2 ML INJ ONE; -LIDOCAINE HCL 2% LOCAL INJ 5 ML SDV VIAL INJ ONE; -ONDANSETRON HCL INJ 2MG/ML 2ML 2 MG/ML VIAL ONE; -POVIDONE IODINE 0.05% 0.05 % ML PO ONE; -PROPOFOL IV EMULSION 10 MG/ML 20 ML VIAL ONE; -SEVOFLURANE INHAL SOLN 250 ML PEN BTL ONE
== END ==
LOC: MRI 13:53
PROVIDERS: ATTEND Specialist
DX: S83.262A Peripheral tear of lateral meniscus, current injury, left knee, initial encounter (principal)

== ENCOUNTER 2022-10-18 14:39 | Outpatient (RCR) | payer MEDICARE | END 2022-10-29 | LOC: PT 14:39 | PROVIDERS: ATTEND Specialist | DX: M17.12 Unilateral primary osteoarthritis, left knee (principal) ==